=== PATIENT | male | born 1960 | race Caucasian/White ===

== ENCOUNTER 2018-04-30 02:02 | Inpatient (IN) | payer BC ==
[2018-04-30] VITALS (20 sets, daily range): BP systolic 101–147; BP diastolic 54–86
[~2018-04-30] VITALS: Ht 180.3 cm; Wt 113.4 kg
[~2018-04-30 02:02] MED LIST: ASP325T PO; CTLP20T PO; LOVA40TA2 PO
[2018-04-30] MEDS ORDERED: HEParin 1000 UNIT/ML (10ML VIAL) FOR BOLUS ONE ×2 (02:12→02:39)
[2018-04-30] MEDS ORDERED: HEParin DRIP 25000 UNIT/500ML 500 ML IV ONE ×2 (02:12)
[2018-04-30] MEDS ORDERED: HEParin 1000 UNIT/ML (10ML VIAL) FOR BOLUS IV ONE (02:12)
[2018-04-30] MEDS ORDERED: CLOPIDOGREL 300 MG (PLAVIX) TABLET PO ONE ×3 (02:12→03:57)
[2018-04-30] MEDS ORDERED: morphine INJ 10 MG/ML 1ML (SYR OR VIAL) IVP STA (02:12)
[2018-04-30 02:25] LABS: BASOPHILS % (AUTO) 0 % (0-10); EOSINOPHILS # (AUTO) 0.2 10^3/uL (0.0-0.3); EOSINOPHILS % (AUTO) 3 % (0-10); HEMATOCRIT 47 % (40-54); LYMPHOCYTES # (AUTO) 2.8 X 10^3 (1.0-4.0); LYMPHOCYTES % (AUTO) 30 % (12-44); MEAN CORPUSCULAR HEMOGLOBIN 32 PG (25-34); MEAN CORPUSCULAR HGB CONC 36 G/DL (32-36); MEAN CORPUSCULAR VOLUME 88 FL (80-99); MEAN PLATELET VOLUME 9.5 FL (7.4-10.4); MONOCYTES % (AUTO) 10 % (0-12); NEUTROPHILS # (AUTO) 5.3 X 10^3 (1.8-7.8); NEUTROPHILS % (AUTO) 57 % (42-75); PLATELET COUNT 250 10^3/uL (130-400); RED BLOOD COUNT 5.36 10^6/uL (4.35-5.85); RED CELL DISTRIBUTION WIDTH 14.9 % (10.0-14.5); WHITE BLOOD COUNT 9.3 10^3/uL (4.3-11.0)
[2018-04-30 02:30] LABS: PROTHROMBIN TIME PATIENT 13.1 SEC (12.2-14.7)
[2018-04-30] MEDS ORDERED: LIDOCAINE 1% INJ 20 ML 20 ML VIAL ONE (02:39)
[2018-04-30] MEDS ORDERED: NS IV 1000 ML 3,000 ML ONE (02:40)
[2018-04-30] MEDS ORDERED: fentaNYL INJECTION 100 MCG/2 ML AMP ONE ×3 (02:42→04:57)
[2018-04-30] MEDS ORDERED: MIDAZOLAM 5 MG/5 ML (VERSED) VIAL ONE (02:42)
--- OUTSIDE RECORDS SUMMARY | 2018-04-30 02:42 | XMS REPORT | Continuity of Care Document ---
Author Author [facility] Organization [facility] Address Unknown Phone Unavailable Allergies Active Description Code Type Severity Reaction Onset Reported/Identified Relationship to Patient Clinical Status Yes No Known Drug Allergies [id number] Drug Allergy Unknown N/A 09/30/2011 Medications There is no data. Problems Date Dx Coded Attending Type Code Diagnosis Diagnosed By 07/27/1105 ALISA LYNCH MD, Ot M25.511 PAIN IN RIGHT SHOULDER 07/27/1105 ALISA LYNCH MD, Ot Z47.89 ENCOUNTER FOR OTHER ORTHOPEDIC AFTERCARE 10/01/2011 Ot 272.4 HYPERLIPIDEMIA NEC/NOS 10/01/2011 Ot 305.1 TOBACCO USE DISORDER 10/01/2011 Ot 397.0 TRICUSPID VALVE DISEASE 10/01/2011 Ot 401.9 HYPERTENSION NOS 10/01/2011 Ot 414.01 CORONARY ATHEROSCLEROSIS OF [place] CORON 10/01/2011 Ot 780.2 SYNCOPE AND COLLAPSE 10/01/2011 Ot V45.82 PERCUTANEOUS TRANSLUM CORON ANGIOPLASTY 07/23/2013 PETE FITCH MD Ot 780.4 DIZZINESS AND GIDDINESS 07/23/2013 PETE FITCH MD Ot V57.4 ORTHOPTIC TRAINING 01/26/2016 ALISA LYNCH MD Ot M25.511 PAIN IN RIGHT SHOULDER 01/26/2016 ALISA LYNCH MD, Ot Z47.89 ENCOUNTER FOR OTHER ORTHOPEDIC AFTERCARE 02/18/2016 ALISA LYNCH MD, Ot M25.511 PAIN IN RIGHT SHOULDER 02/18/2016 ALISA LYNCH MD, Ot Z47.89 ENCOUNTER FOR OTHER ORTHOPEDIC AFTERCARE 04/07/2016 ALISA LYNCH MD, Ot M25.511 PAIN IN RIGHT SHOULDER 04/07/2016 ALISA LYNCH MD, Ot Z47.89 ENCOUNTER FOR OTHER ORTHOPEDIC AFTERCARE Procedures There is no data. Results There is no data. Encounters ACCT No. Visit Date/Time Discharge Status Pt. Type Provider Facility Loc./Unit Complaint [id number] 04/07/2016 08:01:00 04/07/2016 11:06:00 DIS Outpatient ALISA LYNCH MD [facility] REHAB S/P RCR RIGHT [id number] 07/23/2013 08:53:00 07/23/2013 10:34:00 DIS Outpatient PETE FITCH MD [facility] REHAB VESTIBULAR REHAB AND NECK [id number] 09/30/2011 14:00:00 Document Registration
[2018-04-30] MEDS ORDERED: NITRO DRIP 25000 MCG/D5W 250 ML IV ONE (02:44)
--- NOTE | 2018-04-30 02:48 | Cardiology History & Physical ---
HPI-Cardiology Cardiology H&P Date of Admission Primary Care Physician Black Piedra MD Attending Physician Sarita Ty MD, MA FACP [facility] Consulting Physician SOURAV CC: Chest pain HPI: 58 yo man with onset of cp approx 1 hour ago, severe, crushing, midsternal , radiating to shoulders, associated with diaphoresis, continuous, somewhat improved with Fentanyl. Chronic, slowly progressive exertional shortness of breath. Nausea currently present. No diarrhea or constipation Defib arrest in ER. Treated with ext defib x 1, successfully Review of Systems-Cardiology Review of Systems Constitutional: No malaise, No tiredness, No weight loss, No weight gain Eyes: No vision change Ears/Nose/Throat: No ear discharge, No nasal drainage, No recent hearing loss Respiratory: As described under HPI Cardiovascular: As described under HPI Gastrointestinal: As described under HPI Genitourinary: No dysuria, No hematuria Musculoskeletal: No back pain, No joint pain Skin: No rash, No ulcerations Psychiatric/Neurological: No seizure, No focal weakness, No syncope Hematologic: No bleeding abnormalities TVM-Hzybth-Buwnti Hx Patient Social History Alcohol Use: Occasionally Uses Recreational Drug Use: No Smoking Status: Current Someday Smoker Type Used: Cigars 2nd Hand Smoke Exposure: Yes Recent Foreign Travel: No Recent Infectious Disease Expo: No Hospitalization with Isolation: Denies Immunizations Up To Date Tetanus Booster (TDap): Unknown Past Medical History PMH As described under Assessment. Family Medical History Family Medical History: Fam h/o early CAD (brothers) Allergies and Home Medications Allergies Coded Allergies: No Known Drug Allergies (Unverified , 09/30/11) Home Medications Aspirin 325 Mg Tab, 325 MG PO DAILY, (Reported) Citalopram Hydrobromide 20 Mg Tablet, 1 EACH PO DAILY, (Reported) Lovastatin 40 Mg Tablet, 1 EACH PO DAILY WITH SUPPER, (Reported) Patient Home Medication List Home Medication List Reviewed: Yes Physical Exam-Cardiology Physical Exam Vital Signs/I&O 04/30/18 04/30/18 04/30/18 02:04 02:04 02:04 Temp 97.8 Pulse 86 Resp 20 B/P (MAP) 141/79 (99) Pulse Ox 98 98 O2 Delivery Nasal Cannula Nasal Cannula Nasal Cannula O2 Flow Rate 2.0 2.00 2.0 Capillary Refill : Less Than 3 Seconds Constitutional: AAO x 3, well-developed, well-nourished, other (diaphoretic) HEENT: PERRL; No xanthelasmas are seen Neck: No carotid bruit; carotid pulses are 2 + bilaterally, with good upstrokes Respiratory: No accessory muscle use; other (good bilat air entry) Cardiovascular: regular rate-rhythm, S1 and S2, systolic murmur (faint DILLON at card base) Gastrointestinal: No tender; soft; No guarding, No rebound; audible bowel sounds Extremities: No clubbing, No cyanosis, No significant edema Neurologic/Psychiatric: oriented x 3, grossly intact, power is 5/5 both on sides Skin: No rash on exposed areas, No ulcerations on exposed areas Data Review Labs Laboratory Tests 04/30/18 02:09: White Blood Count 9.3, Red Blood Count 5.36, Hemoglobin 17.0, Hematocrit 47, Mean Corpuscular Volume 88, Mean Corpuscular Hemoglobin 32, Mean Corpuscular Hemoglobin Concent 36, Red Cell Distribution Width 14.9H, Platelet Count 250, Mean Platelet Volume 9.5, Neutrophils (%) (Auto) 57, Lymphocytes (%) (Auto) 30, Monocytes (%) (Auto) 10, Eosinophils (%) (Auto) 3, Basophils (%) (Auto) 0, Neutrophils # (Auto) 5.3, Lymphocytes # (Auto) 2.8, Monocytes # (Auto) 1.0, Eosinophils # (Auto) 0.2, Basophils # (Auto) 0.0, Prothrombin Time 13.1, INR Comment 1.0, Activated Partial Thromboplast Time 34 Laboratory Tests 04/30/18 02:09 A/P-Cardiology Assessment/Admission Diagnosis Ac inf wall AL Hypertension CAD. H/o cor stenting to an unknown vessel in or around 1999 at [place], [place] Hyperlipidemia Chronic tobacco use (cigars) Admission Status: Inpatient Order (span 2 midnights) Reason for Inpatient Admission: Ac AL Discussion and Recomendations * Emergency cath. Rationale, procedure, risks, benefits, potential complications , alternatives of card cath and possible ad hoc cor intervention reviewed and discussed. He understands and provides informed consent * Treated with ASA, clopidogrel and heparin * Not good for bb at this time due to low normal bp Clinical Quality Measures AMI/AHF: ASA po Prior to arrival: Yes (324) SARITA TY MD FACP FAC [facility]S Apr 30, 2018 02:48
[2018-04-30 02:49] LABS: ALANINE AMINOTRANSFERASE 27 U/L (0-55); ALKALINE PHOSPHATASE 87 U/L (40-136); AMYLASE 49 U/L (25-125); BILIRUBIN,TOTAL 0.4 MG/DL (0.1-1.0); BUN/CREATININE RATIO 12; CALCIUM 9.7 MG/DL (8.5-10.1); CARBON DIOXIDE 20 MMOL/L (21-32); CHLORIDE 106 MMOL/L (98-107); CREATINE KINASE 62 U/L (30-200); GFR ESTIMATED > 60; GLUCOSE 111 MG/DL (70-105); LIPASE 24 U/L (8-78); POTASSIUM 3.9 MMOL/L (3.6-5.0); SODIUM 141 MMOL/L (135-145); TOTAL PROTEIN 6.8 GM/DL (6.4-8.2)
[2018-04-30 02:57] LABS: CREATINE KINASE MB 1.5 NG/ML (<6.6); MYOGLOBIN SERUM 45.6 NG/ML (10.0-92.0)
[2018-04-30] MEDS ORDERED: EPTIFIBATIDE BOLUS 20 ML IV ONE (03:21)
[2018-04-30] MEDS ORDERED: EPTIFIBATIDE DRIP 100 ML IV ONE (03:21)
[2018-04-30] MEDS ORDERED: PATIENT MAY USE OWN MEDS, ALL PO SCH (04:00)
[2018-04-30] MEDS ORDERED: meTOprolol TARTRATE 25 MG (LOPRESSOR) TABLET PO ONE (04:00)
[2018-04-30] MEDS ORDERED: fentaNYL INJECTION 100 MCG/2 ML AMP IVP PRN ×2 (04:00→05:05)
[2018-04-30] MEDS ORDERED: ENOXAPARIN 100 MG/1 ML (LOVENOX) SYR ONE (04:24)
[2018-04-30] MEDS ORDERED: meTOprolol TARTRATE 25 MG (LOPRESSOR) TABLET ONE (04:24)
[2018-04-30] MEDS: ENOXAPARIN 100 MG/1 ML (LOVENOX) SYR SC SCH ×2 (04:29→16:40)
[2018-04-30] MEDS ORDERED: LORazepam 1 MG (ATIVAN) TAB ONE (04:58)
[2018-04-30] MEDS ORDERED: LORazepam 1 MG (ATIVAN) TAB PO ONE (05:05)
[2018-04-30] MEDS: fentaNYL INJECTION 100 MCG/2 ML AMP IVP PRN ×5 (05:05→20:33)
[2018-04-30] MEDS ORDERED: NS IV 1000 ML 1,000 ML ONE (05:06)
[2018-04-30] MEDS: NS IV 1000 ML 1,000 ML IV SCH ×2 (05:30→15:47)
[2018-04-30] MEDS ORDERED: LORazepam 0.5 MG (ATIVAN) TABLET PO PRN (05:30)
--- NOTE | 2018-04-30 06:03 | ED Chest Pain ---
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 [facility] PT CONTINUES TO SMOKE AND DRINK ALCOHOL DAILY--HAS HAD 5-6 DRINKS TONIGHT PT ALSO QUIT TAKING HIS BLOOD PRESSURE MEDICATION AT LEAST 4 MONTHS AGO EMS GAVE ASPIRIN 324 MG, NTG SL X 3 AND FENTANYL 50 MCG WITH MODERATE IMPROVEMENT IN PAIN PCP: LUCA MARRERO Allergies and Home Medications Allergies Coded Allergies: morphine (Verified Allergy, Unknown, itching , 04/30/18) Home Medications Aspirin 325 Mg Tab, 325 MG PO DAILY, (Reported) Citalopram Hydrobromide 20 Mg Tablet, 1 EACH PO DAILY, (Reported) Lovastatin 40 Mg Tablet, 1 EACH PO DAILY WITH SUPPER, (Reported) Patient Home Medication List Home Medication List Reviewed: Yes Review of Systems Review of Systems Constitutional: see HPI, diaphoresis EENTM: No Symptoms Reported Respiratory: See HPI, Shortness of Air Cardiovascular: See HPI, Chest Pain; Denies Edema; Lightheadedness; Denies Palpitations, Denies Syncope Gastrointestinal: See HPI; Denies Abdominal Pain; Nausea; Denies Vomiting Genitourinary: No Symptoms Reported Musculoskeletal: no symptoms reported Skin: no symptoms reported Psychiatric/Neurological: No Symptoms Reported Endocrine: No Symptoms Reported Hematologic/Lymphatic: No Symptoms Reported Past Dnulrku-Sthbqu-Ybbgly Hx Patient Social History Alcohol Use: Regular Use (DAILY USE--5-6 DRINKS / DAY) Recreational Drug Use: No Smoking Status: Current Everyday Smoker Type Used: Cigars 2nd Hand Smoke Exposure: Yes Recent Foreign Travel: No Contact w/Someone Who Travel: No Recent Infectious Disease Expo: No Recent Hopitalizations: Yes Immunizations Up To Date Tetanus Booster (TDap): Unknown PED Vaccines UTD: Yes Seasonal Allergies Seasonal Allergies: No Past Medical History Surgeries: Yes (HERNIA REPAIR; DENTAL IMPLANTS; CARDIAC CATH--STENT X 1 IN 2007 ; RIGHT KNEE SURGERY; RIGHT SHOULDER SURGERY ) Cardiac, Coronary Stent, Gallbladder, Orthopedic Respiratory: Yes (HOME CPAP) Sleep Apnea Currently Using CPAP: Yes Currently Using BIPAP: No Cardiac: Yes (VTACH) Coronary Artery Disease, Heart Attack, High Cholesterol, Hypertension Neurological: No Reproductive Disorders: No Sexually Transmitted Disease: No Genitourinary: Yes Kidney Stones Gastrointestinal: No Gastroesophageal Reflux Musculoskeletal: Yes Arthritis Endocrine: No HEENT: No Cancer: No Psychosocial: No Integumentary: No Blood Disorders: No Adverse Reaction/Blood Tranf: No Physical Exam Vital Signs Vital Signs - First Documented 04/30/18 02:04 Temp 97.8 Pulse 86 Resp 20 B/P (MAP) 141/79 (99) Pulse Ox 98 O2 Delivery Nasal Cannula O2 Flow Rate 2.0 Capillary Refill : Less Than 3 Seconds Height, Weight, BMI Height: 5'11.00" Weight: 245lbs. 0.0oz. 111.894558cz; 34.2 BMI Method:Stated General Appearance: WD/WN, Other (APPEARS TO BE IN PAIN, GRIMACING, MOANING. .+ ODOR OF ETOH) HEENT: PERRL/EOMI Neck: Full Range of Motion, Normal Inspection, Non Tender, Supple; No Carotid Bruit, No JVD Respiratory: Chest Non Tender, Normal Breath Sounds, No Accessory Muscle Use, No Respiratory Distress Cardiovascular: Regular Rate, Rhythm, No Edema, No JVD, No Murmur, Normal Peripheral Pulses Gastrointestinal: Non Tender, Soft Extremity: Normal Capillary Refill, Normal Inspection, Normal Range of Motion, Non Tender, No Calf Tenderness, No Pedal Edema Neurologic/Psychiatric: Alert, Oriented x3, No Motor/Sensory Deficits, apartment rental agent II- XII Norm as Tested Skin: Normal Color, Warm/Dry Procedures/Interventions CPR: CPR INITIATED WHEN PT WENT INTO V-FIB Defibrillation: PT WENT INTO V-FIB AND WAS DEFIBRILLATED X 1 WITH ROSC Rhythm: Sinus Rhythm Critical Care Note Critical Care Total Time (minutes) 30 Progress/Results/Core Measures Results/Orders Lab Results Laboratory Tests Test 04/30/18 02:09 Range/Units White Blood Count 9.3 4.3-11.0 10^3/uL Red Blood Count 5.36 4.35-5.85 10^6/uL Hemoglobin 17.0 13.3-17.7 G/DL Hematocrit 47 40-54 % Mean Corpuscular Volume 88 80-99 FL Mean Corpuscular Hemoglobin 32 25-34 PG Mean Corpuscular Hemoglobin Concent 36 32-36 G/DL Red Cell Distribution Width 14.9 H 10.0-14.5 % Platelet Count 250 130-400 10^3/uL Mean Platelet Volume 9.5 7.4-10.4 FL Neutrophils (%) (Auto) 57 42-75 % Lymphocytes (%) (Auto) 30 12-44 % Monocytes (%) (Auto) 10 0-12 % Eosinophils (%) (Auto) 3 0-10 % Basophils (%) (Auto) 0 0-10 % Neutrophils # (Auto) 5.3 1.8-7.8 X 10^3 Lymphocytes # (Auto) 2.8 1.0-4.0 X 10^3 Monocytes # (Auto) 1.0 0.0-1.0 X 10^3 Eosinophils # (Auto) 0.2 0.0-0.3 10^3/uL Basophils # (Auto) 0.0 0.0-0.1 10^3/uL Prothrombin Time 13.1 12.2-14.7 SEC INR Comment 1.0 0.8-1.4 Activated Partial Thromboplast Time 34 24-35 SEC Sodium Level 141 135-145 MMOL/L Potassium Level 3.9 3.6-5.0 MMOL/L Chloride Level 106 98-107 MMOL/L Carbon Dioxide Level 20 L 21-32 MMOL/L Anion Gap 15 H 5-14 MMOL/L Blood Urea Nitrogen 13 7-18 MG/DL Creatinine 1.10 0.60-1.30 MG/DL Estimat Glomerular Filtration Rate > 60 BUN/Creatinine Ratio 12 Glucose Level 111 H 70-105 MG/DL Calcium Level 9.7 8.5-10.1 MG/DL Corrected Calcium 9.7 8.5-10.1 MG/DL Magnesium Level 2.0 1.8-2.4 MG/DL Total Bilirubin 0.4 0.1-1.0 MG/DL Aspartate Amino Transf (AST/SGOT) 17 5-34 U/L Alanine Aminotransferase (ALT/SGPT) 27 0-55 U/L Alkaline Phosphatase 87 40-136 U/L Total Creatine Kinase 62 30-200 U/L Creatine Kinase MB 1.5 <6.6 NG/ML Myoglobin 45.6 10.0-92.0 NG/ML Troponin I < 0.30 <0.30 NG/ML B-Type Natriuretic Peptide 15.0 <100.0 PG/ML Total Protein 6.8 6.4-8.2 GM/DL Albumin 4.0 3.2-4.5 GM/DL Amylase Level 49 25-125 U/L Lipase 24 8-78 U/L Serum Alcohol < 10 <10 MG/DL My Orders Orders - TALYA GONGORA DO Heparin (Bolus Per Protocol) (Heparin (B (04/30/18 02:12) Heparin Drip 82959 Unit/500ml (Heparin (04/30/18 02:12) Clopidogrel Tablet (Plavix Tablet) (04/30/18 02:12) Cbc With Automated Diff (04/30/18 02:12) Magnesium (04/30/18 02:12) Chest 1 View, Ap/Pa Only (04/30/18 02:12) Ekg Tracing (04/30/18 02:12) Cardiac Profile 1 (04/30/18 02:12) Comprehensive Metabolic Panel (04/30/18 02:12) Myoglobin Serum (04/30/18 02:12) Protime With Inr (04/30/18:12) Partial Thromboplastin Time (04/30/18 02:12) O2 (04/30/18 02:12) Monitor-Rhythm Ecg Trace Only (04/30/18 02:12) Lipid Panel (05/01/18 06:00) Saline Lock/Iv-Start (04/30/18 02:12) Creatine Kinase (04/30/18 02:12) Creatine Kinase Mb (04/30/18 02:12) Lipase (04/30/18 02:12) Amylase (04/30/18 02:12) BNP (04/30/18 02:12) Clopidogrel Tablet (Plavix Tablet) (04/30/18 02:15) Heparin Drip 12664 Unit/500ml (Heparin (04/30/18 02:12) Heparin (Bolus Per Protocol) (Heparin (B (04/30/18 02:12) Alcohol (04/30/18 02:12) Morphine Injection (Morphine Injection (04/30/18 02:12) Medications Given in ED Current Medications Medications Dose Ordered Sig/Gabrielle Route Start Time Stop Time Status Last Admin Dose Admin Clopidogrel Bisulfate 300 mg ONCE ONCE PO 04/30/18 02:15 04/30/18 02:21 DC 04/30/18 02:25 300 MG Heparin Sodium (Porcine) HEPARIN BOLUS ACS PROTOC... 0212 ONCE IV 04/30/18 02:12 04/30/18 02:21 DC 04/30/18 02:25 5,000 UNIT Heparin Sodium/ Dextrose 500 ml @ 0 mls/hr Q0M ONCE IV 04/30/18 02:12 04/30/18 02:21 DC 04/30/18 02:26 25.2 MLS/HR Vital Signs/I&O 04/30/18 04/30/18 04/30/18 02:04 02:04 02:04 Temp 97.8 Pulse 86 Resp 20 B/P (MAP) 141/79 (99) Pulse Ox 98 98 O2 Delivery Nasal Cannula Nasal Cannula Nasal Cannula O2 Flow Rate 2.0 2.00 2.0 Blood Pressure Mean: 78 Progress Progress Note : Progress Note 0213--SHORTLY AFTER ARRIVAL, PT SUDDENLY WENT INTO V-FIB AND BECAME PULSELESS AND HAD AGONAL BREATHING AND URINARY INCONTINENCE PT IMMEDIATELY DEFIBRILLATED X 1 WITH ROSC AND CPR INITIATED, AND AT 0215 IS THEN AWAKE, ALERT, ORIENTED X 3 AND TALKING PT IS PAIN FREE AFTER THIS Initial ECG Impression Date: Apr 30, 2018 Initial ECG Impression Time: 02:04 Initial ECG Rate: 72 Initial ECG Rhythm: Normal Sinus Initial ECG Impression: Acute [place] EKG : EKG Time: 02:19 Rate: 67 Rhythm: Normal Sinus ECG Impression: Acute DE Diagnostic Imaging Comments CXR--NO ACUTE PROCESS, PENDING RADIOLOGIST REVIEW Reviewed: Reviewed by Me Departure Communication (Admissions) 0208--SPOKE WITH DR. MORENO, HE WILL BE IN TO SEE PT AND ADVISES TO CALL IN LIVING ADVISOR STAFF. HE ALSO ADVISES PLAVIX, HEPARIN AND MORPHINE 0237--DR. MORENO HERE, CARE TURNED OVER TO HIM Impression Primary Impression: STEMI (ST elevation myocardial infarction) Additional Impression: Ventricular fibrillation Disposition: ADMITTED INPATIENT (TO LIVING ADVISOR) Condition: Improved Admissions Decision to Admit Reason: Admit from ER (General) (TO LIVING ADVISOR) Decision to Admit/Date: Apr 30, 2018 Time/Decision to Admit Time: 02:08 Departure-Patient Inst. Referrals: SELF,PETE MCKAY (PCP) Primary Care Physician TALYA GONGORA DO Apr 30, 2018 06:03
--- NOTE | 2018-04-30 06:11 | CARDIAC CATHETERIZATION ---
DATE OF SERVICE: 04/30/2018 The patient is a 58-year-old man with a history of coronary artery disease and right coronary stenting several years ago who presents with the ST elevation myocardial infarction. In the emergency room, he was treated with aspirin, Plavix, heparin. He had a ventricular fibrillation arrest shortly thereafter from which he was successfully resuscitated. Emergency cardiac catheterization was carried out after having obtained informed consent. DESCRIPTION OF THE PROCEDURE: He was brought to the cardiac catheterization laboratory. Right groin was prepared and draped in the usual sterile fashion. Lidocaine 1% local anesthesia, Modified Seldinger technique was used to advance a 6-Chinese sheath in right femoral artery. We were not able to engage the right coronary artery with a 6-Chinese JR4 guide catheter. We used a 6-Chinese JL4 catheter for left coronary angiography. 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 We used a pigtail catheter for left ventricular angiography. We repeated left coronary angiography with a 6-Chinese JL4 catheter. We also carried out aortic root angiography with a 6-Chinese pigtail catheter. At the end of the procedure, angiography of the right femoral artery was carried out through the sheath and Mynx was used to achieve hemostasis. He tolerated the procedure well. HEMODYNAMICS: Left ventricular end-diastolic pressure following coronary angiography was 17 mmHg. There was no significant pressure gradient on pullback across the aortic valve. Ascending aortic pressure was 110/61 with a mean 81 mmHg. LEFT VENTRICULAR ANGIOGRAPHY: Left ventricular angiography was carried out in the right anterior oblique projection. There is inferoapical hypokinesis to akinesis. Left ventricular ejection fraction is approximately 30%. There does not appear to be significant mitral regurgitation. AORTIC ROOT ANGIOGRAPHY: Aortic root angiography does not indicate any significant ascending aortic dissection or aneurysm. No significant aortic regurgitation is seen. The coronary arteries are identified. There does not appear to be any additional coronary artery. CORONARY ANGIOGRAPHY: Diffuse coronary calcification is present. The left main coronary artery does not exhibit significant obstructive disease. Left anterior descending artery has diffuse mild to moderate plaques. A ramus intermedius artery has 50 to 60% proximal stenosis. The left circumflex artery is small and nondominant and has mild plaques. 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 There is a patent stent in its proximal to mid portion. The right coronary artery is patent throughout its course, but the flow is somewhat sluggish. There is no occlusive disease. There are up to 40% stenoses in the RCA. The only tight lesion seen is an approximate 80% stenosis in a very small caliber terminal posterolateral branch, which is not amenable to intervention due to small vessel caliber. Flow, however, in the right coronary artery is sluggish, indicating probable self-resolution of a clot and some distal embolization. CONCLUSIONS: 1. Coronary artery disease, moderate. No distinct occlusion is seen. However, there is sluggish flow in the right coronary artery suggestive of self-resolution of a thrombus and distal microvascular embolization following self-resolution of thrombus. 2. Impairment of global left ventricular systolic function with ejection fraction approximately 30%. 4. Inferoapical hypokinesis to akinesis. 5. Elevated left ventricular end-diastolic pressure. DISCUSSION AND RECOMMENDATIONS: Aspirin and Plavix are being continued. We will, for now, continue with Integrilin. Lovenox will be added. Therapy with her beta blockers and JACKSON inhibitors would be provided as tolerated. He has been advised to quit smoking immediately and completely. He is being hospitalized and is an inpatient for further treatment. As stated above, there was no significant coronary occlusion that would require mechanical coronary intervention, at this time. Job ID: [id number] DocumentID: [id number] Dictated Date: 04/30/2018 03:42:40 Survey Instrument Operator Date: 04/30/2018 06:10:30 Dictated By: COMFORT MORENO MD, MA, FACP, FACC, MTDD
[2018-04-30] MEDS ORDERED: ACETAMINOPHEN 325 MG TABLET ONE (06:36)
--- NOTE | 2018-04-30 06:57 | Diagnostic Imaging Report ---
EXAMINATION: Chest radiograph, portable AP view. DATE: April 30, 2018 at 0232 hours. INDICATION: 58-year-old male, chest pain. COMPARISON: September 30, 2011. FINDINGS: Lung volumes are low with associated central bronchovascular crowding. Given differences in lung volumes, heart size and mediastinal contours appear grossly unchanged. There is no identified pneumothorax. There is no large pleural effusion. There is no definite focal airspace consolidation. There are technical limitations of the exam relating to patient body habitus and difficulties with exposure. IMPRESSION: 1. Technically limited exam. 2. Low lung volumes without definite acute cardiopulmonary abnormality. 3. If there is persistent clinical concern, standardly positioned PA and lateral radiographs or CT chest would be recommended for further assessment. Dictated by: Dictated on workstation # [id number]
--- OUTSIDE RECORDS SUMMARY | 2018-04-30 07:35 | XMS REPORT | Continuity of Care Document ---
Author Author [facility] Organization [facility] Address Unknown Phone Unavailable Allergies Active Description Code Type Severity Reaction Onset Reported/Identified Relationship to Patient Clinical Status Yes No Known Drug Allergies [id number] Drug Allergy Unknown N/A 09/30/2011 Medications There [...] NOS 10/01/2011 Ot 414.01 CORONARY ATHEROSCLEROSIS OF [place] CORON 10/01/2011 Ot 780.2 SYNCOPE AND COLLAPSE [...] Status Pt. Type Provider Facility Loc./Unit Complaint [id number] 04/07/2016 08:01:00 04/07/2016 11:06:00 DIS Outpatient ALISA LYNCH MD [facility] REHAB S/P RCR RIGHT [id number] 07/23/2013 08:53:00 07/23/2013 10:34:00 DIS Outpatient PETE FITCH MD [facility] REHAB VESTIBULAR REHAB AND NECK [id number] 09/30/2011 14:00:00 Document Registration
[2018-04-30] MEDS: ASPIRIN 81 MG CHEW (CHILDREN'S ASA) PO SCH (08:46)
[2018-04-30] MEDS: CLOPIDOGREL 75 MG (PLAVIX) TABLET PO SCH (08:46)
[2018-04-30] MEDS: lisINopril 5 MG (PRINIVIL) TABLET PO SCH (08:46)
[2018-04-30] MEDS: meTOprolol TARTRATE 25 MG (LOPRESSOR) TABLET PO SCH ×2 (08:46→20:33)
[2018-04-30] MEDS ORDERED: CLON0.5T13 PO (08:51)
[2018-04-30] MEDS ORDERED: ANTACID SUSP 30 ML UDC (MYLANTA) PO PRN (10:00)
[2018-04-30] MEDS: PANTOPRAZOLE 40 MG (PROTONIX) VIAL IV SCH (10:43)
[2018-04-30] MEDS: ATORVASTATIN 80 MG (LIPITOR) TABLET PO SCH (20:33)
[2018-04-30] MEDS: ACETAMINOPHEN 325 MG TABLET PO PRN (20:42)
[2018-05-01] VITALS (15 sets, daily range): BP systolic 95–126; BP diastolic 52–83
[2018-05-01 03:51] LABS: BASOPHILS % (AUTO) 0 % (0-10); EOSINOPHILS # (AUTO) 0.1 10^3/uL (0.0-0.3); EOSINOPHILS % (AUTO) 0 % (0-10); HEMATOCRIT 48 % (40-54); HEMOGLOBIN 16.6 G/DL (13.3-17.7); LYMPHOCYTES # (AUTO) 1.6 X 10^3 (1.0-4.0); LYMPHOCYTES % (AUTO) 11 % (12-44); MEAN CORPUSCULAR HEMOGLOBIN 31 PG (25-34); MEAN CORPUSCULAR HGB CONC 35 G/DL (32-36); MEAN CORPUSCULAR VOLUME 89 FL (80-99); MEAN PLATELET VOLUME 9.8 FL (7.4-10.4); MONOCYTES # (AUTO) 1.2 X 10^3 (0.0-1.0); MONOCYTES % (AUTO) 8 % (0-12); NEUTROPHILS # (AUTO) 12.1 X 10^3 (1.8-7.8); NEUTROPHILS % (AUTO) 81 % (42-75); PLATELET COUNT 233 10^3/uL (130-400); RED BLOOD COUNT 5.35 10^6/uL (4.35-5.85)
[2018-05-01] MEDS: ENOXAPARIN 100 MG/1 ML (LOVENOX) SYR SC SCH ×2 (03:53→16:44)
[2018-05-01 04:10] LABS: ALANINE AMINOTRANSFERASE 63 U/L (0-55); ALBUMIN 3.8 GM/DL (3.2-4.5); ALKALINE PHOSPHATASE 81 U/L (40-136); BILIRUBIN,TOTAL 0.8 MG/DL (0.1-1.0); BUN/CREATININE RATIO 12; CALCIUM 9.4 MG/DL (8.5-10.1); CARBON DIOXIDE 18 MMOL/L (21-32); CHLORIDE 109 MMOL/L (98-107); CHOLESTEROL 142 MG/DL (< 200); CREATININE SERUM 0.76 MG/DL (0.60-1.30); GFR ESTIMATED > 60; GLUCOSE 106 MG/DL (70-105); HDL CHOLESTEROL 25 MG/DL (40-60); MAGNESIUM 1.9 MG/DL (1.8-2.4); POTASSIUM 3.7 MMOL/L (3.6-5.0); SODIUM 139 MMOL/L (135-145); TOTAL PROTEIN 6.6 GM/DL (6.4-8.2); TRIGLYCERIDES 205 MG/DL (<150); VLDL CHOLESTEROL 41 MG/DL (5-40)
[2018-05-01] MEDS: ACETAMINOPHEN 325 MG TABLET PO PRN ×2 (05:50→16:54)
[2018-05-01] MEDS: NS IV 1000 ML 1,000 ML IV SCH ×2 (06:27→20:09)
[2018-05-01] MEDS: PANTOPRAZOLE 40 MG (PROTONIX) VIAL IV SCH (08:19)
[2018-05-01] MEDS: meTOprolol TARTRATE 25 MG (LOPRESSOR) TABLET PO SCH ×2 (08:20→20:07)
[2018-05-01] MEDS: ASPIRIN 81 MG CHEW (CHILDREN'S ASA) PO SCH (08:20)
[2018-05-01] MEDS: lisINopril 5 MG (PRINIVIL) TABLET PO SCH (08:20)
[2018-05-01] MEDS: CLOPIDOGREL 75 MG (PLAVIX) TABLET PO SCH (08:20)
[2018-05-01] MEDS ORDERED: LOVA40TA2 PO (10:32)
[2018-05-01] MEDS ORDERED: ASPI-808 PO (10:32)
--- NOTE | 2018-05-01 10:36 | Progress Note-Cardiology ---
Cardiology SOAP Progress Note Subjective: Sitting up in bed with spouse at the bedside. He reports he is feeling better today and wants to go home. No c/o CP, palpitations or dyspnea. No c/o right groin discomfort. Linear abrasions across the umbilicus area which he reports is d/t a "piece of metal which was in a press getting lose and hitting him in the abdomen". He report this occurred the morning before he came to the ED with cardiac issues. Objective: I&O/Vital Signs 05/01/18 05/01/18 05/01/18 05/01/18 04:00 04:00 05:00 06:00 Pulse 77 75 81 Resp 26 26 30 B/P (MAP) 119/83 (95) 109/70 (83) 119/73 (88) Pulse Ox 96 96 96 94 O2 Delivery Room Air Room Air Room Air O2 Flow Rate 0.00 05/01/18 05/01/18 05/01/18 05/01/18 07:00 07:00 08:00 08:27 Temp 98.9 Pulse 73 73 76 Resp 27 20 B/P (MAP) 108/54 (72) 111/63 (79) Pulse Ox 93 97 O2 Delivery Room Air Room Air Room Air 05/01/18 05/01/18 05/01/18 05/01/18 09:00 10:00 11:00 11:15 Temp 98.9 Pulse 75 72 80 70 Resp 26 29 20 22 B/P (MAP) 114/58 (76) 109/58 (75) 95/67 (76) 103/52 (69) Pulse Ox 97 97 90 96 O2 Delivery Room Air Room Air Room Air Room Air 05/01/18 05/01/18 11:18 13:00 Pulse 76 O2 Delivery Room Air 05/01/18 00:00 Intake Total 2250 ml Balance 2250 ml Weight (Pounds): 246 Weight (Ounces): 1.0 Weight (Calculated Kilograms): 111.375933 Side: right Groin site without hematoma: Yes Condition: DP/PT pulses palpable, extremity w/d/p Bruising: mild bruising Constitutional: AAO x 3, well-developed, well-nourished, other (diaphoretic) Respiratory: No accessory muscle use; other (good bilat air entry) Cardiovascular: regular rate-rhythm, S1 and S2, systolic murmur (faint DILLON at card base) Gastrointestional: No tender; soft; No guarding, No rebound; audible bowel sounds Extremities: No clubbing, No cyanosis, No significant edema Neurologic/Psychiatric: oriented x 3, grossly intact, power is 5/5 both on sides Skin: other (Linear abrasions across the umbilicus area) Results/Procedures: Labs Laboratory Tests 05/01/18 03:25: White Blood Count 15.0H, Red Blood Count 5.35, Hemoglobin 16.6, Hematocrit 48, Mean Corpuscular Volume 89, Mean Corpuscular Hemoglobin 31, Mean Corpuscular Hemoglobin Concent 35, Red Cell Distribution Width 15.0H, Platelet Count 233, Mean Platelet Volume 9.8, Neutrophils (%) (Auto) 81H, Lymphocytes (%) (Auto) 11L , Monocytes (%) (Auto) 8, Eosinophils (%) (Auto) 0, Basophils (%) (Auto) 0, Neutrophils # (Auto) 12.1H, Lymphocytes # (Auto) 1.6, Monocytes # (Auto) 1.2H, Eosinophils # (Auto) 0.1, Basophils # (Auto) 0.0, Sodium Level 139, Potassium Level 3.7, Chloride Level 109H, Carbon Dioxide Level 18L, Anion Gap 12, Blood Urea Nitrogen 9, Creatinine 0.76, Estimat Glomerular Filtration Rate > 60, BUN/ Creatinine Ratio 12, Glucose Level 106H, Calcium Level 9.4, Corrected Calcium 9.6, Magnesium Level 1.9, Total Bilirubin 0.8, Aspartate Amino Transf (AST/SGOT ) 148H, Alanine Aminotransferase (ALT/SGPT) 63H, Alkaline Phosphatase 81, Total Protein 6.6, Albumin 3.8, Triglycerides Level 205H, Cholesterol Level 142, LDL Cholesterol Direct 96, VLDL Cholesterol 41H, HDL Cholesterol 25L, Thyroid Stimulating Hormone (TSH) 0.91 Laboratory Tests 04/30/18 02:09 05/01/18 03:25 Procedures Cardiac cath on 04-30-18. Please refer to Dr. Ty's cardiac cath report for details. A/P: Assessment: Ac inf wall [place] on 04/30/18 Coronary artery disease, moderate. Last card cath on 04/30/18 at the time of presentation with IMI: No distinct occlusion is seen. However, there is sluggish flow in the right coronary artery suggestive of self-resolution of a thrombus and distal microvascular embolization following self-resolution of thrombus. Impairment of global left ventricular systolic function with ejection fraction approximately 30%. Inferoapical hypokinesis to akinesis. Elevated left ventricular end-diastolic pressure H/o RCA stenting in the early in [place], [place], patent at time of last card cath of 04/30/18 Hypertension Hyperlipidemia Elevated transaminases, likely related to [place] Chronic tobacco use (cigars) Plan: * Elevated liver enzymes of undetermined etiology, possibly d/t [place] - reports recent abdominal injury yesterday morning * Increase activity * Continue current medication regimen * Monitor lab * Elevated WBC of undetermined etiology * Consult medical services for elevated WBC and liver enzymes * Transfer to medical floor with tele today * Echocardiogram today to eval LVEF and valvular status * Requests records from residential service technician in [place], [place] Physician Assessment Physician Assessment No palp, syncope, shortness of breath. Chest soreness is improving Lungs: good bilat air entry Cor: reg Ext: no c/c/e A&R * As documented in our note above that I updated (italics) and as noted below * Increase ambulation * Echo to reval EF * Keep tele * Transfer to [facility] [place] [facility] * Risk factor modification reviewed with him Clinical Quality Measures AMI/AHF: ASA po Prior to arrival: Yes (324) ORQUIDEA VELA DIRECTOR OF RETAIL May 01, 2018 10:36 COMFORT TY MD FACP [facility] May 01, 2018 15:17
--- NOTE | 2018-05-01 13:25 | History & Physical-Hospitalist ---
History of Present Illness HPI/Chief Complaint Pt is a 58yoCM with a PMH of CAD and [place] who presented to the ER with CC of severe chest pain and SOB. He was activated as a STEMI and taken emergently to labor relations consultant where no occlusion was found and thus he had no stent though there were concerns about self resolved thrombus. I am consulted regarding elevated WBC and liver enzymes. He does state that the day of admission he was working and a large piece of metal sprung and hit him in the abdomen. He denies any abdominal pain at this time and is feeling well. He has no other concerns. Source: patient Date Seen 05/01/18 Time Seen by Provider: 13:25 Attending Physician Sarita Ty MD Facp Facc Ccds PCP Dennis Baird MD Referring Physician Date of Admission Apr 30, 2018 at 03:47 Home Medications & Allergies Home Medications Reviewed patient Home Medication Reconciliation performed by pharmacy medication reconciliations laser technician and/or nursing. Patients Allergies have been reviewed. Allergies Allergies Coded Allergies morphine (Verified Allergy, Unknown, itching , 04/30/18) Past Fssldrf-Kwrmsa-Xqktst Hx Past Med/Social Hx: Reviewed Nursing Past Med/Soc Hx Patient Social History Alcohol Use: Regular Use (DAILY USE--5-6 DRINKS / DAY) Recreational Drug Use: No Smoking Status: Current Everyday Smoker Type Used: Cigars 2nd Hand Smoke Exposure: Yes Physical Abuse Screen: No Sexual Abuse: No Recent Foreign Travel: No Contact w/other who traveled: No Recent Hopitalizations: Yes Recent Infectious Disease Expo: No Immunizations Up To Date Tetanus Booster (TDap): Unknown Pediatric: Yes Seasonal Allergies Seasonal Allergies: No Past Medical History Surgeries: Cardiac, Coronary Stent, Gallbladder, Orthopedic Respiratory: Sleep Apnea Currently Using CPAP: Yes Currently Using BIPAP: No Cardiac: Coronary Artery Disease, Heart Attack, High Cholesterol, Hypertension Reproductive: No Sexually Transmitted Disease: No Genitourinary: Kidney Stones Gastrointestinal: Gastroesophageal Reflux Musculoskeletal: Arthritis History of Blood Disorders: No Adverse Reaction to Blood Bush: No Family History Reviewed Nursing Family Hx Review of Systems Constitutional: No chills, No fever EENTM: No blurred vision, No double vision, No nose congestion, No throat pain Respiratory: No cough, No dyspnea on exertion, No short of breath Cardiovascular: No chest pain, No edema, No palpitations Gastrointestinal: No abdominal pain, No constipation, No diarrhea, No nausea, No vomiting Genitourinary: No dysuria, No frequency Musculoskeletal: No joint pain, No muscle pain Skin: No lesions, No rash Psychiatric/Neurological: Denies Headache, Denies Numbness, Denies Tingling Physical Exam Physical Exam Vital Signs Vital Signs - First Documented 04/30/18 02:04 Temp 97.8 Pulse 86 Resp 20 B/P (MAP) 141/79 (99) Pulse Ox 98 O2 Delivery Nasal Cannula O2 Flow Rate 2.0 Capillary Refill : Less Than 3 Seconds Height, Weight, BMI Height: 5'11.00" Weight: 246lbs. 1.0oz. 111.480348ee; 34.2 BMI Method:Stated General Appearance: No Apparent Distress, WD/WN HEENT: PERRL/EOMI, Moist Mucous Membranes Neck: Non Tender, Supple Respiratory: Lungs Clear, No Respiratory Distress Cardiovascular: Regular Rate, Rhythm, No Murmur Gastrointestinal: Normal Bowel Sounds, Non Tender, Soft Extremity: Normal Capillary Refill, No Calf Tenderness Neurologic/Psychiatric: Alert, Oriented x3, Normal Mood/Affect Skin: Normal Color, Warm/Dry, Ecchymosis (linear over abdomen) Results Results/Procedures Labs Laboratory Tests 05/02/18 05:23 Patient resulted labs reviewed. Assessment/Plan Admission Diagnosis STEMI Admission Status: Inpatient Order (span 2 midnights) Clinical Quality Measures AMI/AHF: ASA po Prior to arrival: Yes (324) DVT/VTE Risk/Contraindication: Risk Factor Score Per Nursin RFS Level Per Nursing on Admit: 3=High GUSTAVO JACOB MD May 01, 2018 13:25
--- NOTE | 2018-05-01 13:37 | Consultation-Hospitalist ---
HPI History of Present Illness: HPI/Chief Complaint Pt is a 58yoCM with a PMH of CAD and [place] who presented to the ER with CC of severe chest pain and SOB. He was activated as a STEMI and taken emergently to culture media laboratory assistant where no occlusion was found and thus he had no stent though there were concerns about self resolved thrombus. I am consulted regarding elevated WBC and liver enzymes. He does state that the day of admission he was working and a large piece of metal sprung and hit him in the abdomen. He denies any abdominal pain at this time and is feeling well. He has no other concerns. Date Seen 05/01/18 Attending Physician Sarita Ty MD Facp Facc Ccds PCP Dennis Baird MD Referring Physician Date of Admission Apr 30, 2018 at 03:47 Home Medications & Allergies Home Medications Reviewed patient Home Medication Reconciliation performed by pharmacy medication reconciliations coordinate measuring machine technician and/or nursing. Patients Allergies have been reviewed. Allergies Allergies Coded Allergies morphine (Verified Allergy, Unknown, itching , 04/30/18) Past Mdevcie-Wobhfk-Vnilla Hx Past Med/Social Hx: Reviewed Nursing Past Med/Soc Hx Patient Social History Alcohol Use: Regular Use (DAILY USE--5-6 DRINKS / DAY) Recreational Drug Use: No Smoking Status: Current Everyday Smoker Type Used: Cigars 2nd Hand Smoke Exposure: Yes Physical Abuse Screen: No Sexual Abuse: No Recent Foreign Travel: No Contact w/other who traveled: No Recent Hopitalizations: Yes Recent Infectious Disease Expo: No Immunizations Up To Date Tetanus Booster (TDap): Unknown Pediatric: Yes Seasonal Allergies Seasonal Allergies: No Past Medical History Surgeries: Cardiac, Coronary Stent, Gallbladder, Orthopedic Respiratory: Sleep Apnea Currently Using CPAP: Yes Currently Using BIPAP: No Cardiac: Coronary Artery Disease, Heart Attack, High Cholesterol, Hypertension Reproductive: No Sexually Transmitted Disease: No Genitourinary: Kidney Stones Gastrointestinal: Gastroesophageal Reflux Musculoskeletal: Arthritis History of Blood Disorders: No Adverse Reaction to Blood Bush: No Family History Reviewed Nursing Family Hx Review of Systems Constitutional: no symptoms reported EENTM: no symptoms reported Respiratory: no symptoms reported, short of breath Cardiovascular: chest pain; No edema, No palpitations Gastrointestinal: No RUQ; see HPI; No abdominal pain Genitourinary: no symptoms reported Musculoskeletal: no symptoms reported Skin: no symptoms reported Psychiatric/Neurological: No Symptoms Reported Physical Exam Physical Exam Vital Signs Vital Signs - First Documented 04/30/18 02:04 Temp 97.8 Pulse 86 Resp 20 B/P (MAP) 141/79 (99) Pulse Ox 98 O2 Delivery Nasal Cannula O2 Flow Rate 2.0 Capillary Refill : Less Than 3 Seconds Height, Weight, BMI Height: 5'11.00" Weight: 246lbs. 1.0oz. 111.648531ag; 34.2 BMI Method:Stated General Appearance: No Apparent Distress, WD/WN HEENT: PERRL/EOMI Neck: Non Tender, Supple Respiratory: Lungs Clear, No Respiratory Distress Cardiovascular: Regular Rate, Rhythm, No Murmur Gastrointestinal: Normal Bowel Sounds, Non Tender, Soft Extremity: Normal Capillary Refill, No Calf Tenderness Neurologic/Psychiatric: Alert, Oriented x3, Normal Mood/Affect Skin: Normal Color, Warm/Dry, Ecchymosis Results Results/Procedures Labs Laboratory Tests 04/30/18 02:09 05/01/18 03:25 Patient resulted labs reviewed. Assessment/Plan Assessment and Plan Assess & Plan/Chief Complaint STEMI Diagnosis/Problems Diagnosis/Problems (1) STEMI (ST elevation myocardial infarction) Status: Acute Assessment & Plan: management per primary Continue statin, asa, plavix, and beta chanel Qualifiers: Involved coronary artery: unspecified coronary artery Qualified Codes: I21.3 - ST elevation (STEMI) myocardial infarction of unspecified site (2) Leukocytosis Status: Acute Assessment & Plan: Likely reactive for CPR No signs of infection Trend Qualifiers: Leukocytosis type: unspecified Qualified Codes: D72.829 - Elevated white blood cell count, unspecified (3) Transaminitis Status: Acute Assessment & Plan: Likely shock from CPR in ER Will get usg due to history of trauma (4) Obstructive sleep apnea Assessment & Plan: Has CPAP at home Clinical Quality Measures AMI/AHF: ASA po Prior to arrival: Yes (324) DVT/VTE Risk/Contraindication: Risk Factor Score Per Nursin RFS Level Per Nursing on Admit: 3=High GUSTAVO JACOB MD May 01, 2018 13:37
--- NOTE | 2018-05-01 14:30 | Diagnostic Imaging Report ---
PROCEDURE: US Abdomen, limited. TECHNIQUE: Multiple realtime grayscale images were obtained over the abdomen in various projections. INDICATION: Elevated liver enzymes. FINDINGS: The liver measures 17.1 cm. No discrete liver mass is identified. The gallbladder is surgically absent. No biliary duct dilatation is seen. The pancreas is obscured by bowel gas. The right kidney does contain a cyst in the upper pole approximately 6.2 cm in diameter. There is no ascites. IMPRESSION: 1. Status post cholecystectomy. No biliary duct dilatation or discrete liver mass is identified. 2. 6.2 cm right renal cyst. Dictated by: Dictated on workstation # [id number]
[2018-05-01] MEDS: ATORVASTATIN 80 MG (LIPITOR) TABLET PO SCH (20:07)
[2018-05-02] VITALS: BP 124/73
[2018-05-02] MEDS: ACETAMINOPHEN 325 MG TABLET PO PRN (00:14)
[2018-05-02] MEDS: NS IV 1000 ML 1,000 ML IV SCH (00:14)
[2018-05-02 04:00] VITALS: BP 124/61
[2018-05-02] MEDS: ENOXAPARIN 100 MG/1 ML (LOVENOX) SYR SC SCH (04:33)
[2018-05-02 05:52] LABS: HEMOGLOBIN 15.2 G/DL (13.3-17.7); MEAN PLATELET VOLUME 9.7 FL (7.4-10.4); RED BLOOD COUNT 4.82 10^6/uL (4.35-5.85); RED CELL DISTRIBUTION WIDTH 14.9 % (10.0-14.5); WHITE BLOOD COUNT 13.7 10^3/uL (4.3-11.0)
[2018-05-02 06:15] LABS: ALANINE AMINOTRANSFERASE 39 U/L (0-55); ALBUMIN 3.6 GM/DL (3.2-4.5); ALKALINE PHOSPHATASE 73 U/L (40-136); BUN/CREATININE RATIO 11; CALCIUM 9.4 MG/DL (8.5-10.1); CARBON DIOXIDE 20 MMOL/L (21-32); CHLORIDE 108 MMOL/L (98-107); CREATININE SERUM 0.79 MG/DL (0.60-1.30); GFR ESTIMATED > 60; GLUCOSE 102 MG/DL (70-105); POTASSIUM 3.7 MMOL/L (3.6-5.0); SODIUM 139 MMOL/L (135-145); TOTAL PROTEIN 6.3 GM/DL (6.4-8.2)
[2018-05-02] MEDS ORDERED: PANTOPRAZOLE 40 MG (PROTONIX) TAB PO SCH (07:00)
[2018-05-02] MEDS: meTOprolol TARTRATE 25 MG (LOPRESSOR) TABLET PO SCH (07:57)
[2018-05-02] MEDS: CLOPIDOGREL 75 MG (PLAVIX) TABLET PO SCH (07:57)
[2018-05-02] MEDS: ASPIRIN 81 MG CHEW (CHILDREN'S ASA) PO SCH (07:57)
[2018-05-02] MEDS: lisINopril 5 MG (PRINIVIL) TABLET PO SCH (07:57)
[2018-05-02 08:00] VITALS: BP 124/76
[2018-05-02] MEDS ORDERED: CLOP75TA28 PO (09:34)
[2018-05-02] MEDS ORDERED: ASPI-999 PO (09:34)
[2018-05-02] MEDS ORDERED: METO-333 PO (09:34)
[2018-05-02] MEDS ORDERED: LISI-556 PO (09:36)
--- NOTE | 2018-05-02 09:36 | Discharge Inst-Cardiology ---
Discharge Inst-Cardiac Discharge Medications New Medications: Aspirin (Aspirin) 81 Mg Tab.chew 81 MG PO DAILY, #90 TAB 1 Refill Clopidogrel Bisulfate (Clopidogrel) 75 Mg Tablet 75 MG PO DAILY, #30 TAB 1 Refill Lisinopril (Lisinopril) 5 Mg Tablet 5 MG PO DAILY, #30 TAB 1 Refill Metoprolol Tartrate (Metoprolol Tartrate) 25 Mg Tablet 25 MG PO BID, #60 TAB 1 Refill Continued Medications: Clonazepam (Clonazepam) 0.5 Mg Tablet 0.5 MG PO DAILY, TAB Lovastatin (Lovastatin) 40 Mg Tablet 40 MG PO DAILY, TAB Discontinued Medications: Aspirin (Aspirin) 325 Mg Tablet 325 MG PO DAILY, TAB New, Converted or Re-Newed RX: Transmitted to Pharmacy Patient Instructions Patient Instructions: Please schedule follow up appt to see Dr. Salazar in 4 weeks Please schedule follow up appt to see Dr. Ty next week ORQUIDEA VELA May 02, 2018 09:36
[2018-05-02 11:15] VITALS: BP 124/76
--- NOTE | 2018-05-02 12:54 | Progress Note-Cardiology ---
Cardiology SOAP Progress Note Subjective: No cp or palp or syncope or groin discomfort or leg discomfort or shortness of breath. Wishes to go home. Does not wish to stay in the hosp any longer Objective: I&O/Vital Signs 05/02/18 05/02/18 05/02/18 05/02/18 01:00 01:00 01:20 01:25 Temp 101.2 100.5 100.5 Pulse 72 05/02/18 05/02/18 05/02/18 05/02/18 04:00 07:00 08:00 11:15 Temp 99.5 Pulse 84 84 89 89 Resp 20 20 B/P (MAP) 124/61 (82) 124/76 (92) 124/76 Pulse Ox 90 90 O2 Delivery Room Air Room Air O2 Flow Rate 0.00 05/02/18 00:00 Intake Total 1242 ml Balance 1242 ml Weight (Pounds): 250 Weight (Ounces): 1.0 Weight (Calculated Kilograms): 113.448012 Side: right Groin site without hematoma: Yes Condition: DP/PT pulses palpable, extremity w/d/p Bruising: mild bruising Constitutional: AAO x 3, well-developed, well-nourished, other (diaphoretic) Respiratory: No accessory muscle use; other (good bilat air entry) Cardiovascular: regular rate-rhythm, S1 and S2, systolic murmur (faint DILLON at card base) Gastrointestional: No tender; soft; No guarding, No rebound; audible bowel sounds Extremities: No clubbing, No cyanosis, No significant edema Neurologic/Psychiatric: oriented x 3, grossly intact, power is 5/5 both on sides Skin: other (Linear abrasions across the umbilicus area) Results/Procedures: Labs Laboratory Tests 05/02/18 05:23: White Blood Count 13.7H, Red Blood Count 4.82, Hemoglobin 15.2, Hematocrit 43, Mean Corpuscular Volume 89, Mean Corpuscular Hemoglobin 32, Mean Corpuscular Hemoglobin Concent 35, Red Cell Distribution Width 14.9H, Platelet Count 209, Mean Platelet Volume 9.7, Sodium Level 139, Potassium Level 3.7, Chloride Level 108H, Carbon Dioxide Level 20L, Anion Gap 11, Blood Urea Nitrogen 9, Creatinine 0.79, Estimat Glomerular Filtration Rate > 60, BUN/Creatinine Ratio 11, Glucose Level 102, Calcium Level 9.4, Corrected Calcium 9.7, Total Bilirubin 1.0, Aspartate Amino Transf (AST/SGOT) 49H, Alanine Aminotransferase (ALT/SGPT) 39, Alkaline Phosphatase 73, Total Protein 6.3L, Albumin 3.6 Microbiology 04/30/18 MRSA Screen - Final, Complete MRSA not isolated Laboratory Tests 05/01/18 03:25 05/02/18 05:23 A/P: Assessment: Ac inf wall [place] on 04/30/18. V Fib arrest at time of presentation, treated successfully with CPR and ext defib in the ER, no subsequent recurrence Coronary artery disease, moderate. Last card cath on 04/30/18 at the time of presentation with IMI: No distinct occlusion is seen. However, there is sluggish flow in the right coronary artery suggestive of self-resolution of a thrombus and distal microvascular embolization following self-resolution of thrombus. An old, prox/mid RCA stent is patent. Impairment of global left ventricular systolic function with ejection fraction approximately 30%. Inferoapical hypokinesis to akinesis. Elevated left ventricular end-diastolic pressure H/o RCA stenting in the early 1999s in [place], [place], patent at time of last card cath of 04/30/18 Echo on 05/01/18: LVEF 50-55%, mild inferoapical hypokinesis, no significant valvular lesions. PASP approx 25 mmHg Hypertension Hyperlipidemia Elevated transaminases, likely related to [place] Chronic tobacco use (cigars), advised to quit immediately and completely Mild leucocytosis for which he has been evaluated by Dr Wyman of the Med/ Hospitalist [facility]. Further f/u is advised with his pcp Plan: * His EF is much improved and he has not had any subsequent arrhythmias. He refuses to stay in the hosp any longer * We discussed his CV issues and importance of compliance with meds, risk factor mod, and outpt card f/u * He wishes to f/u with Dr Salazar, his automotive electrician, and will make f/u apptt with him. We have advised him to do this KIERRA and have his records transferred * We have advised immediate and complete smoking cessation Clinical Quality Measures AMI/AHF: ASA po Prior to arrival: Yes (324) COMFORT MORENO MD FACP FACC [facility]S May 02, 2018 12:54
--- NOTE | 2018-05-02 12:59 | Cardiology Discharge Summary ---
Diagnosis/Chief Complaint Date of Admission Apr 30, 2018 at 03:47 Date of Discharge May 02, 2018 at 11:10 Final/Discharge Diagnosis Ac inf wall [place] on 04/30/18. V Fib arrest at time of presentation, treated successfully with CPR and ext defib in the ER, no subsequent recurrence Coronary artery disease, moderate. Last card cath on 04/30/18 at the time of presentation with IMI: No distinct occlusion is seen. However, there is sluggish flow in the right coronary artery suggestive of self-resolution of a thrombus and distal microvascular embolization following self-resolution of thrombus. An old, prox/mid RCA stent is patent. Impairment of global left ventricular systolic function with ejection fraction approximately 30%. Inferoapical hypokinesis to akinesis. Elevated left ventricular end-diastolic pressure H/o RCA stenting in the early 1999s in [place], [place], patent at time of last card cath of 04/30/18 Echo on 05/01/18: LVEF 50-55%, mild inferoapical hypokinesis, no significant valvular lesions. PASP approx 25 mmHg Hypertension Hyperlipidemia Elevated transaminases, likely related to [place] Chronic tobacco use (cigars), advised to quit immediately and completely Mild leucocytosis for which he has been evaluated by Dr Wyman of the Med/ Hospitalist [facility]. Further f/u is advised with his pcp Chief Complaint/HPI Chief Complaint/HPI CC: Chest pain HPI: 58 yo man with onset of cp approx 1 hour ago, severe, crushing, midsternal , radiating to shoulders, associated with diaphoresis, continuous, somewhat improved with Fentanyl. Chronic, slowly progressive exertional shortness of breath. Nausea currently present. No diarrhea or constipation V fib arrest in ER. Treated with ext defib x 1, successfully For condition at d/c and hosp course, please refer to the progress note of the same date (05/02/14) Discharge Summary Hospital Course Pending Labs Laboratory Tests 05/02/18 05:23: White Blood Count 13.7, Red Blood Count 4.82, Hemoglobin 15.2, Hematocrit 43, Mean Corpuscular Volume 89, Mean Corpuscular Hemoglobin 32, Mean Corpuscular Hemoglobin Concent 35, Red Cell Distribution Width 14.9, Platelet Count 209, Mean Platelet Volume 9.7, Sodium Level 139, Potassium Level 3.7, Chloride Level 108, Carbon Dioxide Level 20, Anion Gap 11, Blood Urea Nitrogen 9, Creatinine 0.79, Estimat Glomerular Filtration Rate > 60, BUN/Creatinine Ratio 11, Glucose Level 102, Calcium Level 9.4, Corrected Calcium 9.7, Total Bilirubin 1.0, Aspartate Amino Transf (AST/SGOT) 49, Alanine Aminotransferase (ALT/SGPT) 39, Alkaline Phosphatase 73, Total Protein 6.3, Albumin 3.6 Discussion & Recommendations Home Medications Reviewed patient Home Medication Reconciliation performed by pharmacy medication reconciliations integration technician and/or nursing. Patients Allergies have been reviewed. Discharge Home Medications: Reviewed and agree with Discharge Medication list on patient's Discharge Instruction sheet Clinical Quality Measures AMI/AHF: ASA po Prior to arrival: Yes (324) DVT/VTE Risk/Contraindication: Risk Factor Score Per Nursin RFS Level Per Nursing on Admit: 3=High COMFORT MORENO MD FACP FAC CCDS May 02, 2018 12:59
== END 2018-05-02 11:10 | disposition home or self-care (01) | DRG 280 ==
LOC: ER 02:03 → EDUNIT# 02:03 → ICU 02:39 → CATH 02:39 → ICU 03:46 → UNDOADMIN 03:47 → ICU 03:47 → CATH 04:25 → 4TH 05-01 11:53 → ICU 05-01 11:53 → UNDODISIN 05-02 11:10
PROVIDERS: ADMIT Internal Medicine Cardiovascular Disease; ATTEND Internal Medicine Cardiovascular Disease
PROC: 4A023N7 Measurement of Cardiac Sampling and Pressure, Left Heart, Percutaneous Approach (ICD-10-PCS; principal; 2018-04-30)
PROC: B2111ZZ Fluoroscopy of Multiple Coronary Arteries using Low Osmolar Contrast (ICD-10-PCS; 2018-04-30)
PROC: B2151ZZ Fluoroscopy of Left Heart using Low Osmolar Contrast (ICD-10-PCS; 2018-04-30)
PROC: B3101ZZ Fluoroscopy of Thoracic Aorta using Low Osmolar Contrast (ICD-10-PCS; 2018-04-30)
DX: I21.19 ST elevation (STEMI) myocardial infarction involving other coronary artery of inferior wall (principal); I49.01 Ventricular fibrillation; I46.9 Cardiac arrest, cause unspecified; I25.10 Atherosclerotic heart disease of native coronary artery without angina pectoris; I10 Essential (primary) hypertension; I25.2 Old myocardial infarction; E78.00 Pure hypercholesterolemia, unspecified; G47.33 Obstructive sleep apnea (adult) (pediatric); K21.9 Gastro-esophageal reflux disease without esophagitis; M19.91 Primary osteoarthritis, unspecified site; D72.829 Elevated white blood cell count, unspecified; R74.8 Abnormal levels of other serum enzymes; F17.290 Nicotine dependence, other tobacco product, uncomplicated; S30.811A Abrasion of abdominal wall, initial encounter; Z95.5 Presence of coronary angioplasty implant and graft; W22.8XXA Striking against or struck by other objects, initial encounter; Z87.442 Personal history of urinary calculi
CPT/HCPCS: 36415; 51702; 71045; 76705; 80053; 80061; 80320; 82150; 82550; 82553; 83690; 83735; 83874; 83880; 84443; 84484; 85025; 85027; 85610; 85730; 87081; 93005; 93041; 93306; 93458; 93567; 96365

== ENCOUNTER → 2021-07-13 | Outpatient (CLI) | payer BC ==
[~2021-07-13] MED LIST changes: +ASPI-808 PO; +ASPI-999 PO; +CLON0.5T4 PO; +CLOP75TA28 PO; +LISI-729 PO; +METO-333 PO
== END ==
LOC: CARD 08:53
PROVIDERS: ATTEND Internal Medicine Cardiovascular Disease
DX: I34.0 Nonrheumatic mitral (valve) insufficiency (principal); I51.7 Cardiomegaly
CPT/HCPCS: 93306

== ENCOUNTER → 2021-07-20 | Outpatient (CLI) | payer BC ==
[~2021-07-20] MED LIST changes: -LISI-729 PO; +LISI5TAB20 PO; +REGADENOSON 0.4 MG/5 ML SYR (LEXISCAN) IV ONE
[2021-07-20] MEDS: CATHETER FLUSH 10 ML SYR IV PRN ×2 (08:37→09:36)
[2021-07-20 09:35] VITALS: BP 145/82
--- NOTE | 2021-07-20 17:10 | STRESS TEST ---
DATE OF SERVICE: 07/20/2021 RESTING AND POST REGADENOSON TECHNETIUM-99M TETROFOSMIN SPECT CT IMAGING ORDERING PHYSICIAN: Dr. Ty. PRIMARY PHYSICIAN: Dr. Baird. CLINICAL DIAGNOSES: History of myocardial infarction. Baseline images were carried out after injection of 10.51 mCi of technetium-99m Tetrofosmin. This was followed by 0.4 mg regadenoson and 29.6 mCi of technetium-99m Tetrofosmin for stress imaging. The electrocardiogram showed sinus rhythm. Old anteroseptal myocardial infarction is suggested on the electrocardiogram. The electrocardiogram did not change significantly with the regadenoson infusion. The patient tolerated the procedure well. Review of images at rest and following stress indicates a large anterolateral and apical perfusion defect that is predominantly fixed. Gated images show inferolateral and apical akinesis. Left ventricular ejection fraction is 43%. Left ventricular end diastolic volume is 186 mL. TID is absent (1.14). CONCLUSIONS: 1. This study indicates a large anterolateral and apical myocardial infarction without significant ischemia. Left ventricular ejection fraction is calculated to be 43%. 2. Marked cardiomegaly. Job ID: [id number] DocumentID: [id number] Dictated Date: 07/20/2021 14:49:05 Supervisor [employer] Date: 07/20/2021 17:09:41 Dictated By: COMFORT TY MD, MA, FACP, FACC,
== END ==
LOC: CARD 08:30
PROVIDERS: ATTEND Internal Medicine Cardiovascular Disease
DX: I25.2 Old myocardial infarction (principal); I51.7 Cardiomegaly
CPT/HCPCS: 78452; 93017; A9502

== ENCOUNTER 2021-09-21 13:00 | Day surgery (SDC) | payer BC ==
[2021-09-21] VITALS (10 sets, daily range): BP systolic 101–141; BP diastolic 56–92
[~2021-09-21] VITALS: Ht 177.8 cm; Wt 106.9 kg
[2021-09-21 11:38] LABS: BASOPHILS % (AUTO) 0 % (0-10); EOSINOPHILS # (AUTO) 0.1 10^3/uL (0.0-0.3); EOSINOPHILS % (AUTO) 2 % (0-10); HEMATOCRIT 54 % (40-54); HEMOGLOBIN 18.1 g/dL (13.3-17.7); LYMPHOCYTES # (AUTO) 2.1 10^3/uL (1.0-4.0); LYMPHOCYTES % (AUTO) 24 % (12-44); MEAN CORPUSCULAR HEMOGLOBIN 31 pg (25-34); MEAN CORPUSCULAR HGB CONC 34 g/dL (32-36); MEAN CORPUSCULAR VOLUME 92 fL (80-99); MEAN PLATELET VOLUME 8.9 fL (9.0-12.2); MONOCYTES # (AUTO) 0.8 10^3/uL (0.0-1.0); MONOCYTES % (AUTO) 9 % (0-12); NEUTROPHILS # (AUTO) 5.8 10^3/uL (1.8-7.8); NEUTROPHILS % (AUTO) 65 % (42-75); PLATELET COUNT 239 10^3/uL (130-400); WHITE BLOOD COUNT 8.9 10^3/uL (4.3-11.0)
[2021-09-21 11:51] LABS: INR 0.9 (0.8-1.4)
[2021-09-21 11:57] LABS: ALBUMIN 4.1 GM/DL (3.2-4.5); BILIRUBIN,TOTAL 0.7 MG/DL (0.1-1.0); CALCIUM 9.6 MG/DL (8.5-10.1); CREATININE SERUM 0.83 MG/DL (0.60-1.30); POTASSIUM 4.2 MMOL/L (3.6-5.0); TOTAL PROTEIN 7.5 GM/DL (6.4-8.2)
[~2021-09-21 13:00] MED LIST changes: +FURO20TA4 PO; +HEParin (CATH LAB) 1,000 ML IV ONE; +LIDOCAINE 1% INJ 20 ML VIAL ONE; +METO1TAB35 PO; +MIDAZOLAM 5 MG/5 ML (VERSED) VIAL ONE; +NS IV 1000 ML 1,000 ML IV SCH; +NS IV 1000 ML 1,000 ML ONE; -REGADENOSON 0.4 MG/5 ML SYR (LEXISCAN) IV ONE; +SACU1TAB2 PO; +SPIR25TA PO; +fentaNYL INJ 100 MCG/2 ML AMP ONE
[2021-09-21] MEDS ORDERED: HEParin 1000 UNIT/ML (10ML VIAL) FOR BOLUS ONE (13:15)
--- NOTE | 2021-09-21 13:35 | Cardiac Procedure Note-CS/ASA ---
Pre-Procedure Note Pre-Op Procedure Note H&P Reviewed The H&P was reviewed, patient examined and no changes noted. Date H&P Reviewed: Sep 21, 2021 Time H&P Reviewed: 12:30 Conscious Sedation Pre-Proced Time 12:30 ASA Score 3 For ASA 3 and 4: Consider anesthesia and medical clearance. Also, for patients with a history of failed moderate sedation consider anesthesia. Airway Lungs Heart ASA score ASA 1: a normal healthy patient ASA 2: a patient with a mild systemic disease (mid diabetes, controlled hypertension, obesity ASA 3: a patient with a severe systemic disease that limits activity (angina, COPD, prior Myocardial infarction) ASA 4: a patient with an incapacitating disease that is a constant threat to life (CHF, renal failure) ASA 5: a moribund patient not expected to survive 24 hrs. (ruptured aneurysm) ASA 6: a declared brain- patient whose organs are being harvested. For emergent operations, add the letter E after the classification Mallampati Classification Grade 2 Sedation Plan Analgesia, Amnesia, Plan communicated to team members, Discussed options with patient/fam, Discussed risks with patient/fam The patient is an appropriate candidate to undergo the planned procedure, sedation, and anesthesia. The patient immediately re-assessed prior to indication. COMFORT MORENO MD FACP FAC CCDS Sep 21, 2021 13:34
--- NOTE | 2021-09-21 13:38 | Discharge Inst-Cardiology ---
Discharge Inst-Cardiac Discharge Medications Continued Medications: Aspirin (Aspirin) 81 Mg Tab.chew 81 MG PO DAILY, #90 TAB 1 Refill Furosemide (Furosemide) 20 Mg Tablet 20 MG PO UD, TAB Lovastatin (Lovastatin) 40 Mg Tablet 40 MG PO DAILY, TAB Metoprolol Succinate/Hctz (Dutoprol 25-12.5 mg Tablet) 1 Each Tab.er.24h 1 EACH PO DAILY, TAB Sacubitril/Valsartan (Entresto 24 mg-26 mg Tablet) 1 Each Tablet 1 TAB PO BID, TAB Spironolactone (Aldactone) 25 Mg Tablet 25 MG PO UD, TAB COMFORT MORENO MD FACP FAC CCDS Sep 21, 2021 13:38
--- NOTE | 2021-09-21 13:39 | Discharge Inst-Post CATH ---
Discharge Inst-CATH/EP Post Cardiac Cath/EP D/C Inst Follow Up/Plan F/u with Dr Ty one month F/u with Dr Junior in one week regarding eval for leg bypass surgery ACTIVITY * Go Home directly and rest. * Limit activity of the leg (or wrist if it was used) for 7 days including aerobics, swimming, jogging, bicycling, etc. * Restrict stair-climbing for 7 days if possible, if not, climb up with your non-cath leg, then bring together on the same step. * Avoid lifting, pushing, pulling or excessive movement of the affected extremity for 7 days. * Customary sexual activity may be resumed after 2 days-use caution not to use a position that strains or causes pain to the affected extremity. * No driving for 24 hours. * NO SMOKING. * Avoid straining for bowel movements for 7 days. * Gentle walking on level ground is allowed. * Returning to work will depend on the type of procedure and the results. Your doctor will discuss this with you. CALL YOUR DOCTOR FOR ANY OF THE FOLLOWING: *If bleeding from the puncture site occurs- Apply gentle pressure to site with clean cloth and call your doctor or EMS. * If a knot or lump forms under the skin, increases in size, or causes pain. * If bruising appears to be worsening or moving further down your leg instead of disappearing. * Temperature above 101 F. CARE OF YOUR GROIN INCISION; * Bruising or purple discoloration of the skin near the puncture site is common. * You may shower only, no bathtub bathing for 5 days. Be careful to avoid slipping as your leg may feel stiff. * If a closure device was used on your femoral artery, please see the attached guide regarding care of the device and your leg. * Leave dressing on FOR 24 hours. CARE OF YOUR WRIST INCISION; * Bruising or purple discoloration of the skin near the puncture site is common. * You may shower. * DO NOT submerge wrist. * Leave dressing on FOR 24 hours. COMFORT TY MD FACP FAC CCDS Sep 21, 2021 13:39
[2021-09-21] MEDS ORDERED: NS IV 1000 ML 1,000 ML IV SCH (13:45)
[2021-09-21] MEDS ORDERED: PATIENT MAY USE OWN MEDS, ALL PO SCH (13:45)
--- NOTE | 2021-09-21 17:27 | OPERATIVE REPORT ---
DATE OF SERVICE: 09/21/2021 PERIPHERAL ANGIOGRAPHY REPORT The patient is a 61-year-old gentleman, who has a history of peripheral arterial disease and coronary artery disease. He has been experiencing increasing leg claudication. The leg claudication has been stable for the last several months, but is quite severe and brought on with mild exertion. Noninvasive workup had indicated severe disease involving the left lower limb. Peripheral angiography was recommended. Informed consent was obtained. DESCRIPTION OF PROCEDURE: He was brought to the cardiac catheterization laboratory in a fasting state after he had provided an informed consent for peripheral angiography. The right groin was prepared and draped in the usual sterile fashion. Lidocaine 1% was used for local anesthesia. Modified Seldinger technique was used to advance a 5-Canadian sheath in right femoral artery. A 5-Canadian pigtail catheter was placed at the level of L1 and abdominal aortic angiography was performed. The pigtail catheter was then pulled back to just above the level of the aortoiliac bifurcation and bilateral leg artery angiography was performed with runoff down to the level of the ankles. He tolerated the procedure well. At the end of the procedure, Mynx was used to achieve hemostasis following sheath removal. ABDOMINAL AORTIC ANGIOGRAPHY: Abdominal aortic angiography did not indicate any significant abdominal aortic stenosis. There is diffuse calcification of the abdominal aorta. There does not appear to be significant abdominal aortic aneurysm. Renal arteries are identified. The right renal artery is free of significant disease. The left renal artery has 50% proximal stenosis. BILATERAL LEG ARTERY ANGIOGRAPHY: Bilateral leg artery angiography showed that the left common iliac artery was occluded in its proximal portion. This is a relatively long occlusion and the artery reconstitutes via collaterals. Subsequently, the external iliac is seen reconstituted. The left internal iliac artery is not well visualized. The left external iliac artery continues as the common femoral, which bifurcates into superficial and deep femoral. The superficial femoral appears to be free of significant disease and continues as the left popliteal, which appears to trifurcate with a good runoff. On the right side, there is diffuse mild to moderate plaque of the iliac artery. The superficial femoral artery has mild plaques. It continues as the right popliteal and then trifurcates into the anterior and posterior tibial and the peroneal arteries, which have a good runoff. CONCLUSIONS: 1. 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 The left lower limb arterial system has mild to moderate diffuse disease. 2. A 50% stenosis of the proximal portion of the left renal artery. DISCUSSION AND RECOMMENDATIONS: We will refer to vascular surgery for the consideration of bypass surgery for the common iliac artery occlusion. Job ID: [id number] DocumentID: [id number] Dictated Date: 09/21/2021 13:31:09 Director Medicaid Date: 09/21/2021 16:14:17 Dictated By: COMFORT MORENO MD, MA, FACP, FACC,
== END 2021-09-21 17:00 | disposition home or self-care (01) ==
LOC: CATH 13:00 → SDC 13:44 → CATH 17:00
PROVIDERS: ATTEND Internal Medicine Cardiovascular Disease
DX: I70.1 Atherosclerosis of renal artery (principal); I74.5 Embolism and thrombosis of iliac artery; I25.10 Atherosclerotic heart disease of native coronary artery without angina pectoris; I10 Essential (primary) hypertension; E78.5 Hyperlipidemia, unspecified; I65.23 Occlusion and stenosis of bilateral carotid arteries; I25.5 Ischemic cardiomyopathy; E78.2 Mixed hyperlipidemia; I70.209 Unspecified atherosclerosis of native arteries of extremities, unspecified extremity; F17.210 Nicotine dependence, cigarettes, uncomplicated; Z79.82 Long term (current) use of aspirin; Z79.899 Other long term (current) drug therapy; Z80.9 Family history of malignant neoplasm, unspecified
CPT/HCPCS: 75625; 75716; 80053; 80061; 85025; 85610; 85730; 87081; C1760; C1894; 36415

== ENCOUNTER → 2021-11-10 | Outpatient (CLI) | payer BC ==
[~2021-11-10] MED LIST changes: +CATHETER FLUSH 10 ML SYR IV PRN; -HEParin (CATH LAB) 1,000 ML IV ONE; +HOLD METFORMIN - RECEIVED CONTRAST 20 ML VIAL IV SCH; +IOHEXOL 350 MG/ML 150 ML (OMNIPAQUE 350) VIAL IV ONE; -LIDOCAINE 1% INJ 20 ML VIAL ONE; -MIDAZOLAM 5 MG/5 ML (VERSED) VIAL ONE; +NS 100 ML (IVPB) BAG IV ONE; -NS IV 1000 ML 1,000 ML IV SCH; -NS IV 1000 ML 1,000 ML ONE; -fentaNYL INJ 100 MCG/2 ML AMP ONE
[2021-11-10 09:51] LABS: CREATININE SERUM 0.87 MG/DL (0.60-1.30)
--- NOTE | 2021-11-10 11:12 | Diagnostic Imaging Report ---
INDICATION: Peripheral vascular disease, known left arterial occlusion. COMPARISON: I have no relevant comparison. TECHNIQUE: Post IV contrast-enhanced CT angiogram abdomen and pelvis performed with bilateral lower extremity runoffs including 2-D and 3-D reconstructions. All CT scans use one or more of the following dose optimizing techniques: Automated exposure control, MA and/or KvP adjustment based on a patient size and exam type, or iterative reconstruction. FINDINGS: There is dljrwdux-jg-nwyphz diffuse mixed soft and hard plaque throughout the abdominal aorta without focal stenosis. The aorta is nonaneurysmal. No dissection, mural hemorrhage, or rupture. The left common iliac occludes proximally. There is reconstitution of that vessel near its bifurcation. There is severe diffuse calcified plaque throughout the right common iliac resulting in less than 50% stenosis. There is diffuse calcified and soft plaque throughout the length of the bilateral external iliacs. The left is stenosed at its mid segment by about 60%, the right less than 50%. RIGHT LEG: There is mixed soft and hard plaque at the common femoral resulting in about 40% stenosis. There are scattered diffuse plaques throughout the SFA, most notably distally where there is a moderate stenosis of around 50-60%. At the popliteal level, there is obscuration by artifact from total knee replacement. Below that level, the common tibioperoneal trunk was patent, and there is an opacified three-vessel runoff to the ankle. LEFT LEG: Mixed soft and hard plaque at the common femoral results in about 40% stenosis. The profunda is patent. There is scattered calcified plaque throughout the length of the SFA, most notably distally, but no hemodynamically significant degree of stenosis. There is calcified plaque at the common tibioperoneal trunk, narrowed by about 50%. Beyond that level, there is an opacified three-vessel runoff to the ankle. The celiac, the superior mesenteric, and the inferior mesenteric arteries show diffuse calcified plaque without focal stenosis or occlusion. There is extensive calcified plaque at the bilateral renal artery ostia and through their proximal third with less than 50% stenosis. There are cysts in the right kidney. The gallbladder is surgically absent. The liver, spleen, adrenals, pancreas, and unobstructed kidneys were nonacute. There is no bowel obstruction. There is noninflamed diverticulosis at the sigmoid. No ascites, abscess, hematoma, or acute fluid collection. IMPRESSION: 1. Left common iliac occlusion with reconstitution at its bifurcation. 2. Three-vessel runoffs below the knees bilaterally present. 3. Diffuse aortoiliac and femoral atherosclerotic disease with predominantly bjfr-zs-aphnedtd stenoses detailed above. 4. Nonacute aorta without hemodynamically significant aortic or focal mesenteric stenosis. No findings of acute visceral end organ ischemia. Dictated by: Dictated on workstation # [id number]
== END ==
LOC: RAD 10:15
DX: I74.5 Embolism and thrombosis of iliac artery (principal); I70.202 Unspecified atherosclerosis of native arteries of extremities, left leg
CPT/HCPCS: 36415; 75635; 82565; 84520

== ENCOUNTER → 2022-03-17 | Outpatient (CLI) | payer BC ==
[~2022-03-17] MED LIST changes: -CATHETER FLUSH 10 ML SYR IV PRN; -HOLD METFORMIN - RECEIVED CONTRAST 20 ML VIAL IV SCH; -IOHEXOL 350 MG/ML 150 ML (OMNIPAQUE 350) VIAL IV ONE; -NS 100 ML (IVPB) BAG IV ONE
--- NOTE | 2022-03-17 13:35 | Diagnostic Imaging Report ---
INDICATION: 62-year-old male, peripheral vascular disease and previous angioplasty. History of hyperlipidemia and previous vascular surgery. History of prior myocardial infarction.. TECHNIQUE: Segmental pulse pressures were performed of the upper and lower extremities. FINDINGS: Resting Doppler Blood Pressures RIGHT Brachial: 112 mmHg Ankle (Posterior Tibial): 123 mm Hg Index: 1.07 Ankle (Dorsalis Pedis): 98 mm Hg Index: 0.85 LEFT Brachial: 115 mmHg Ankle (Posterior Tibial): 119 mm Hg Index: 1.03 Ankle (Dorsalis Pedis): 102 mm Hg Index: 0.89 IMPRESSION: Abnormal ankle-brachial indices as above. Ankle-Brachial Index Diagnosis/Interpretation <=0.90 Peripheral Arterial Disease 0.91-0.99 Borderline 1.00-1.40 Normal >1.40 Concern for noncompressible arteries, (assoc with Diabetes Mellitus) Dictated by: Dictated on workstation # [id number]
== END ==
LOC: RAD 11:00
PROVIDERS: ATTEND Surgery Vascular Surgery
DX: I73.9 Peripheral vascular disease, unspecified (principal); Z95.820 Peripheral vascular angioplasty status with implants and grafts
CPT/HCPCS: 93922

== ENCOUNTER → 2022-06-22 | Outpatient (CLI) | payer BC | LOC: CARD 12:37 | PROVIDERS: ATTEND Internal Medicine Cardiovascular Disease | DX: R42 Dizziness and giddiness (principal) | CPT/HCPCS: 93225; 93226 ==

== ENCOUNTER 2023-03-09 16:44 | Emergency (ER) | payer BC ==
[~2023-03-09] VITALS: Ht 177.8 cm; Wt 103.0 kg
[2023-03-09] MEDS ORDERED: ASPIRIN 81 MG CHEW (CHILDREN'S ASA) PO ONE (17:00)
[2023-03-09 17:02] LABS: BASOPHILS % (AUTO) 0 % (0-10); EOSINOPHILS # (AUTO) 0.2 10^3/uL (0.0-0.3); EOSINOPHILS % (AUTO) 2 % (0-10); HEMATOCRIT 51 % (40-54); HEMOGLOBIN 17.4 g/dL (13.3-17.7); LYMPHOCYTES # (AUTO) 2.5 10^3/uL (1.0-4.0); LYMPHOCYTES % (AUTO) 28 % (12-44); MEAN CORPUSCULAR HEMOGLOBIN 32 pg (25-34); MEAN CORPUSCULAR HGB CONC 34 g/dL (32-36); MEAN CORPUSCULAR VOLUME 94 fL (80-99); MEAN PLATELET VOLUME 9.3 fL (9.0-12.2); MONOCYTES # (AUTO) 0.7 10^3/uL (0.0-1.0); MONOCYTES % (AUTO) 7 % (0-12); NEUTROPHILS # (AUTO) 5.7 10^3/uL (1.8-7.8); NEUTROPHILS % (AUTO) 63 % (42-75); PLATELET COUNT 250 10^3/uL (130-400); WHITE BLOOD COUNT 9.1 10^3/uL (4.3-11.0)
[2023-03-09 17:04] LABS: ALBUMIN 4.1 GM/DL (3.2-4.5); CHLORIDE 107 MMOL/L (98-107)
[2023-03-09 17:05] LABS: SODIUM 141 MMOL/L (135-145)
[2023-03-09 17:06] LABS: CALCIUM 9.7 MG/DL (8.5-10.1); INR 0.9 (0.8-1.4); PROTHROMBIN TIME PATIENT 12.4 SEC (12.2-14.7)
--- NOTE | 2023-03-09 17:06 | ED Chest Pain ---
General Chief Complaint: Chest Pain Stated Complaint: CHEST PAIN Nursing Triage Note: PT AMBULTE TO ROOM 07 WITHOUT DIFFICULTY WITH C/O CHEST PAIN X3 DAYS THAT STARTED TO RADIATE TO LEFT ARM OVERNIGHT LAST NIGHT. PT REPORTS LEFT ARM WAS TINGLING. PT REPORTS PAIN MOVES LEFT TO RIGHT AND FROM ABD TO CHEST. Source: patient Exam Limitations: no limitations History of Present Illness Date Seen by Provider: Mar 09, 2023 Time Seen by Provider: 16:49 Initial Comments 63-year-old male presents the ER with complaints of intermittent chest pain since Monday. He states that the location of the pain changes from lower midsternal, to lower left chest, to mid axillary region around the fifth interco stal space. He states the last time he had chest pain today was around 1:30 this afternoon. Denies any current chest pain. Denies any shortness of breath and or sweating with the pain. Denies radiation of the pain to the neck, arm, shoulder. Does report that a couple of times during the night his left arm was numb and tingling. Reports he had some nausea earlier, denies nausea at this time. He has had an SC in the past, has one cardiac stent that was placed in 2007. Other past medical history includes high cholesterol. He smokes cigars, but states he has significantly cut back. Drinks alcohol occasionally, denies any drug use. Currently takes an Enestro, lovastatin, metoprolol, aspirin. Allergies and Home Medications Allergies Coded Allergies: rosuvastatin (Verified Allergy, Mild, Nausea/sick, 09/21/21) morphine (Verified Allergy, Unknown, itching , 04/30/18) Patient Home Medication List Home Medication List Reviewed: Yes Aspirin (Aspirin) 81 Mg Tab.chew, 81 MG PO DAILY Prescribed by: ORQUIDEA VELA on 05/02/18 0934 Furosemide (Furosemide) 20 Mg Tablet, 20 MG PO UD, (Reported) Entered as Reported by: BARON LEE on 09/21/21 1142 Lovastatin (Lovastatin) 40 Mg Tablet, 40 MG PO DAILY, (Reported) Entered as Reported by: BRITTANY QIU on 05/01/18 1032 Metoprolol Succinate/Hctz (Dutoprol 25-12.5 mg Tablet) 1 Each Tab.er.24h, 1 EACH PO DAILY, (Reported) Entered as Reported by: BARON LEE on 09/21/21 1142 Sacubitril/Valsartan (Entresto 24 mg-26 mg Tablet) 1 Each Tablet, 1 TAB PO BID, (Reported) Entered as Reported by: BARON LEE on 09/21/21 1142 Spironolactone (Aldactone) 25 Mg Tablet, 25 MG PO UD, (Reported) Entered as Reported by: BARON ELE on 09/21/21 1142 Review of Systems Review of Systems Constitutional: see HPI Past Rzhaqdn-Xnxsvx-Ahaxtm Hx Patient Social History Tobacco Use?: Yes Tobacco type used: Cigars Smoking Status: Light Tobacco Smoker Smokeless Tobacco Frequency: Never a User Use of E-Cig and/or Vaping dev: No Use of E-Cig and/or Vaping Devin: Never a User Substance use?: No Alcohol Use?: Yes Alcohol Frequency: Couple times a week Pt feels they are or have been: No Immunizations Up To Date Tetanus Booster (TDap): Unknown PED Vaccines UTD: Yes Seasonal Allergies Seasonal Allergies: No Past Medical History Surgeries: Yes Joint Replacement, Orthopedic Respiratory: Yes (HOME CPAP) Sleep Apnea Currently Using CPAP: Yes Currently Using BIPAP: No Cardiac: Yes (VTACH) Coronary Artery Disease Neurological: No Reproductive Disorders: No Sexually Transmitted Disease: No Genitourinary: Yes Kidney Stones Gastrointestinal: No Gastroesophageal Reflux Musculoskeletal: Yes Arthritis Endocrine: No HEENT: No Cancer: No Psychosocial: No Integumentary: No Blood Disorders: No Adverse Reaction/Blood Tranf: No Physical Exam Vital Signs Vital Signs - First Documented 03/09/23 03/09/23 16:46 18:05 Temp 36.7 Pulse 87 Resp 19 B/P (MAP) 171/110 (130) Pulse Ox 98 O2 Delivery Room Air Capillary Refill : Less Than 3 Seconds Height, Weight, BMI Height: 5'11.00" Weight: 250lbs. 1.0oz. 113.313712is; 32.00 BMI Method:Stated General Appearance: No Apparent Distress, WD/WN Neck: Normal Inspection, Supple Respiratory: Chest Non Tender, Lungs Clear, Normal Breath Sounds, No Accessory Muscle Use, No Respiratory Distress Cardiovascular: Regular Rate, Rhythm Extremity: Normal Inspection, Normal Range of Motion Neurologic/Psychiatric: Alert, Normal Mood/Affect Skin: Normal Color, Warm/Dry Procedures/Interventions CPR: CPR INITIATED WHEN PT WENT INTO V-FIB Defibrillation: PT WENT INTO V-FIB AND WAS DEFIBRILLATED X 1 WITH ROSC Progress/Results/Core Measures Results/Orders Lab Results Laboratory Tests Test 03/09/23 16:47 03/09/23 17:00 Range/Units White Blood Count 9.1 4.3-11.0 10^3/uL Red Blood Count 5.46 4.30-5.52 10^6/uL Hemoglobin 17.4 13.3-17.7 g/dL Hematocrit 51 40-54 % Mean Corpuscular Volume 94 80-99 fL Mean Corpuscular Hemoglobin 32 25-34 pg Mean Corpuscular Hemoglobin Concent 34 32-36 g/dL Red Cell Distribution Width 13.2 10.0-14.5 % Platelet Count 250 130-400 10^3/uL Mean Platelet Volume 9.3 9.0-12.2 fL Immature Granulocyte % (Auto) 0 % Neutrophils (%) (Auto) 63 42-75 % Lymphocytes (%) (Auto) 28 12-44 % Monocytes (%) (Auto) 7 0-12 % Eosinophils (%) (Auto) 2 0-10 % Basophils (%) (Auto) 0 0-10 % Neutrophils # (Auto) 5.7 1.8-7.8 10^3/uL Lymphocytes # (Auto) 2.5 1.0-4.0 10^3/uL Monocytes # (Auto) 0.7 0.0-1.0 10^3/uL Eosinophils # (Auto) 0.2 0.0-0.3 10^3/uL Basophils # (Auto) 0.0 0.0-0.1 10^3/uL Immature Granulocyte # (Auto) 0.0 0.0-0.1 10^3/uL Prothrombin Time 12.4 12.2-14.7 SEC INR Comment 0.9 0.8-1.4 Activated Partial Thromboplast Time 33 24-35 SEC Sodium Level 141 135-145 MMOL/L Potassium Level 4.0 3.6-5.0 MMOL/L Chloride Level 107 98-107 MMOL/L Carbon Dioxide Level 23 21-32 MMOL/L Anion Gap 11 5-14 MMOL/L Blood Urea Nitrogen 12 7-18 MG/DL Creatinine 0.86 0.60-1.30 MG/DL Estimat Glomerular Filtration Rate 97 BUN/Creatinine Ratio 14 Glucose Level 106 H 70-105 MG/DL Calcium Level 9.7 8.5-10.1 MG/DL Corrected Calcium 9.6 8.5-10.1 MG/DL Magnesium Level 1.9 1.6-2.4 MG/DL Total Bilirubin 0.4 0.1-1.0 MG/DL Aspartate Amino Transf (AST/SGOT) 19 5-34 U/L Alanine Aminotransferase (ALT/SGPT) 22 0-55 U/L Alkaline Phosphatase 83 40-136 U/L Troponin I < 0.028 <0.028 NG/ML Total Protein 7.4 6.4-8.2 GM/DL Albumin 4.1 3.2-4.5 GM/DL Lipase 25 8-78 U/L My Orders Orders - YURY MANRIQUEZ APRN Cbc With Automated Diff (03/09/23 16:52) Magnesium (03/09/23 16:52) Chest 1 View, Ap/Pa Only (03/09/23 16:52) Ekg Tracing (03/09/23 16:52) Comprehensive Metabolic Panel (03/09/23 16:52) Protime With Inr (03/09/23 16:52) Partial Thromboplastin Time (03/09/23 16:52) Monitor-Rhythm Ecg Trace Only (03/09/23 16:52) Ed Iv/Invasive Line Start (03/09/23 16:52) Troponin I [place] (03/09/23 16:52) Aspirin Chewable Tablet (Baby Aspirin Ch (03/09/23 17:00) Lipase (03/09/23 16:58) Ua Culture If Indicated (03/09/23 16:58) Medications Given in ED Current Medications Medications Dose Ordered Sig/Gabrielle Route Start Time Stop Time Status Last Admin Dose Admin Aspirin 324 mg ONCE ONCE PO 03/09/23 17:00 03/09/23 17:01 DC 03/09/23 16:56 324 MG Vital Signs/I&O 03/09/23 03/09/23 16:46 18:05 Temp 36.7 36.7 Pulse 87 73 Resp 19 19 B/P (MAP) 171/110 (130) 133/81 Pulse Ox 98 O2 Delivery Room Air Room Air Blood Pressure Mean: 130 Progress Progress Note : Progress Note Patient seen and evaluated, resting comfortably in bed, no acute distress. Based on exam and symptoms, cardiac work-up initiated, CBC, CMP, magnesium, EKG, chest x-ray, troponin, coags, lipase. 1753 Labs and chest x-ray reviewed. CBC grossly normal. CMP grossly normal. Troponin negative. Magnesium normal. Lipase normal. Coags normal. Chest x- ray shows no acute cardiopulmonary process. Chest pain is atypical, does not sound like acute coronary syndrome. I am comfortable with patient being discharged at this time after reassuring EKG, troponin, and other lab work. Results discussed with patient. Patient agrees with discharge plan. Discharge instructions and return precautions provided. Initial ECG Impression Date: Mar 09, 2023 Initial ECG Impression Time: 16:50 Initial ECG Rate: 81 Initial ECG Rhythm: Normal Sinus Initial ECG Intervals: NH Initial ECG Intervals NH interval elevated at 220. Initial ECG Impression: Nonspecific Changes Initial ECG Comparisson: Unchanged Comment Q waves noted in lead I, 2, aVL, aVF, V3, V4, V5, V6. No ST elevation or T wave inversion present. Diagnostic Imaging Diagonstic Imaging: CT Plain Films/CT/US/NM/MRI: chest Comments [facility]. [place], [place] NAME: SETH WANG [employer] REC#: [id number] PT STATUS: REG ER : 1960 PHYSICIAN: YURY MANRIQUEZ APRN ADMIT DATE: 03/09/23/ER Draft Date of Exam:03/09/23 CHEST 1 VIEW, AP/PA ONLY INDICATION: Chest pain COMPARISON: 04/30/2018 FINDINGS: Single frontal view of the chest demonstrates normal heart size and pulmonary vascularity. The lungs are well aerated and clear. No large pleural effusion or pneumothorax is seen. The visualized osseous structures show no acute abnormalities. IMPRESSION: 1. No acute cardiopulmonary process. Dictated on workstation # [id number] Dict: 03/09/23 1706 Trans: 03/09/231706 [facility] [id number] Interpreted by: MADY TADEO MD Electronically signed by: Departure Impression Primary Impression: Chest wall pain Disposition: 01 HOME, SELF-CARE Condition: Stable Departure-Patient Inst. Decision time for Depature: 17:53 Referrals: PETE FITCH MD (PCP/Family) Primary Care Physician Patient Instructions: Chest Pain That Is Not Caused by the Heart (DC) Add. Discharge Instructions: Follow-up with Dr. Ty. Return for severe chest pain, shortness of breath, or any other new, concerning, or worsening symptoms. All discharge instructions reviewed with patient and/or family. Voiced underst anding. YURY MANRIQUEZ APRN Mar 09, 2023 17:06
[2023-03-09 17:07] LABS: GLUCOSE 106 MG/DL (70-105); TOTAL PROTEIN 7.4 GM/DL (6.4-8.2)
[2023-03-09 17:08] LABS: CARBON DIOXIDE 23 MMOL/L (21-32)
[2023-03-09 17:09] LABS: BILIRUBIN,TOTAL 0.4 MG/DL (0.1-1.0)
[2023-03-09 17:11] LABS: ALKALINE PHOSPHATASE 83 U/L (40-136); CREATININE SERUM 0.86 MG/DL (0.60-1.30); GFR ESTIMATED 97
[2023-03-09 17:12] LABS: BUN/CREATININE RATIO 14
[2023-03-09 17:13] LABS: ALANINE AMINOTRANSFERASE 22 U/L (0-55); MAGNESIUM 1.9 MG/DL (1.6-2.4)
[2023-03-09 18:05] VITALS: BP 133/81
== END 2023-03-09 18:05 | disposition home or self-care (01) ==
LOC: EDUNIT# 16:44 → ER 16:45
DX: R07.89 Other chest pain (principal); F17.210 Nicotine dependence, cigarettes, uncomplicated; G47.30 Sleep apnea, unspecified; I25.2 Old myocardial infarction; Z95.5 Presence of coronary angioplasty implant and graft; Z79.82 Long term (current) use of aspirin; Z79.899 Other long term (current) drug therapy; Z99.89 Dependence on other enabling machines and devices; Z28.311 Partially vaccinated for COVID-19
CPT/HCPCS: 36415; 71045; 80053; 83690; 83735; 84484; 85025; 85610; 85730; 93005; 93041

== ENCOUNTER → 2023-07-13 | Outpatient (CLI) | payer BC | LOC: CARD 09:15 | PROVIDERS: ATTEND Nurse Practitioner Family | DX: I25.5 Ischemic cardiomyopathy (principal); I25.10 Atherosclerotic heart disease of native coronary artery without angina pectoris | CPT/HCPCS: 93306 ==